=== PATIENT | male | born 1990 | race Caucasian/White ===

== ENCOUNTER 2020-11-04 11:25 | Emergency (ER) | payer OTHER ==
[~2020-11-04] VITALS: Ht 180.3 cm; Wt 127.0 kg
--- NOTE | 2020-11-04 12:02 | ED General ---
General Chief Complaint: Respiratory Problems Stated Complaint: WEAK/SOA/COUGH Nursing Triage Note: Patient reports he began having symptoms of lack of energy, shortness of breath, cough, and loss of taste and smell on 10/26/20. Source of Information: Patient History of Present Illness Date Seen by Provider: Nov 04, 2020 Time Seen by Provider: 12:02 Initial Comments 29-year-old male presenting with complaints of decreased energy, shortness of breath, cough and low-grade fever with chills since Oct 26. He had a tooth pulled on October 27 and was told that he would likely have a sinus infection so he was placed on Augmentin. He has continued to feel bad ever since. This morning he had nausea and vomiting after trying to take Seroquel for his symptoms. He finally decided to come be seen because of feeling bad and having no energy. He did take Tylenol around 930 for his dental pain from having the tooth pulled. He had decreased taste and smell. Anytime he tries to take a deep breath he starts coughing. He states he is not really bringing anything up when he coughs. Associated Systoms: Chest Pain (from coughing), Cough, Fever/Chills (low grade) Allergies and Home Medications Allergies Coded Allergies: No Known Drug Allergies (Unverified , 11/04/20) Patient Home Medication List Home Medication List Reviewed: Yes Ondansetron (Ondansetron Odt) 4 Mg Tab.rapdis, 4 MG PO Q6H PRN for NAUSEA/VOMITING Prescribed by: GERSON LOBATO on 11/04/20 1413 Prednisone (Prednisone) 20 Mg Tab, 40 MG PO DAILY Prescribed by: GERSON LOBATO on 11/04/20 1413 Review of Systems Review of Systems Constitutional: chills, dizziness, fever, malaise, weakness EENTM: hoarseness, nose congestion; No epistaxis Respiratory: cough Cardiovascular: No edema Gastrointestinal: see HPI, nausea, vomiting (today) Genitourinary: no symptoms reported Musculoskeletal: other (generalized body aches) Skin: no symptoms reported Psychiatric/Neurological: Headache Hematologic/Lymphatic: Denies Blood Clots, Denies Easy Bleeding, Denies Easy Bruising Past Kqmoxzc-Anzjzw-Cdswwt Hx Patient Social History Tobacco Use?: No Substance use?: No Alcohol Use?: Yes Alcohol Frequency: Once in a while Pt feels they are or have been: No Past Medical History Surgeries: No Respiratory: No Cardiac: No Neurological: No Genitourinary: No Gastrointestinal: No Musculoskeletal: No Endocrine: No HEENT: No Cancer: No Psychosocial: No Physical Exam Vital Signs Vital Signs - First Documented 11/04/20 11:40 Temp 37.9 Pulse 93 Resp 18 B/P (MAP) 148/84 (105) Pulse Ox 96 O2 Delivery Room Air Capillary Refill : Less Than 3 Seconds Height, Weight, BMI Height: '" Weight: lbs. oz. kg; 39.00 BMI Method: General Appearance: No Apparent Distress, Other (appears to not feel well) HEENT: PERRL/EOMI; No Moist Mucous Membranes (slightly dry mucous membranes) Neck: Full Range of Motion, Supple Respiratory: Chest Non Tender, No Accessory Muscle Use, No Respiratory Distress, Decreased Breath Sounds Cardiovascular: Normal Peripheral Pulses, Tachycardia Gastrointestinal: Normal Bowel Sounds, No Pulsatile Mass, Non Tender, Soft Rectal: Deferred Extremity: Normal Capillary Refill, Normal Inspection, No Pedal Edema Neurologic/Psychiatric: Alert, Oriented x3, No Motor/Sensory Deficits, Normal Mood/Affect, transfer professor II-XII Norm as Tested Skin: Normal Color, Warm/Dry Progress/Results/Core Measures Suspected Sepsis SIRS Temperature: Pulse: 93 Respiratory Rate: 18 Laboratory Tests 11/04/20 13:10: White Blood Count 3.6L Blood Pressure 148 /84 Mean: 105 Laboratory Tests 11/04/20 13:10: Creatinine 1.23, INR Comment 0.9, Platelet Count 160, Total Bilirubin 0.3 Results/Orders Lab Results Laboratory Tests Test 11/04/20 11:43 11/04/20 13:10 Range/Units White Blood Count 3.6 L 4.3-11.0 10^3/uL Red Blood Count 5.65 H 4.30-5.52 10^6/uL Hemoglobin 16.0 13.3-17.7 g/dL Hematocrit 48 40-54 % Mean Corpuscular Volume 84 80-99 fL Mean Corpuscular Hemoglobin 28 25-34 pg Mean Corpuscular Hemoglobin Concent 34 32-36 g/dL Red Cell Distribution Width 12.8 10.0-14.5 % Platelet Count 160 130-400 10^3/uL Mean Platelet Volume 9.7 9.0-12.2 fL Immature Granulocyte % (Auto) 0 % Neutrophils (%) (Auto) 71 42-75 % Lymphocytes (%) (Auto) 23 12-44 % Monocytes (%) (Auto) 5 0-12 % Eosinophils (%) (Auto) 0 0-10 % Basophils (%) (Auto) 0 0-10 % Neutrophils # (Auto) 2.6 1.8-7.8 X 10^3 Lymphocytes # (Auto) 0.8 L 1.0-4.0 X 10^3 Monocytes # (Auto) 0.2 0.0-1.0 X 10^3 Eosinophils # (Auto) 0.0 0.0-0.3 10^3/uL Basophils # (Auto) 0.0 0.0-0.1 10^3/uL Immature Granulocyte # (Auto) 0.0 0.0-0.1 10^3/uL Prothrombin Time 12.8 12.2-14.7 SEC INR Comment 0.9 0.8-1.4 Activated Partial Thromboplast Time 35 24-35 SEC Sodium Level 135 135-145 MMOL/L Potassium Level 4.0 3.6-5.0 MMOL/L Chloride Level 99 98-107 MMOL/L Carbon Dioxide Level 24 21-32 MMOL/L Anion Gap 12 5-14 MMOL/L Blood Urea Nitrogen 12 7-18 MG/DL Creatinine 1.23 0.60-1.30 MG/DL Estimat Glomerular Filtration Rate 71 BUN/Creatinine Ratio 10 Glucose Level 100 70-105 MG/DL Calcium Level 8.9 8.5-10.1 MG/DL Corrected Calcium 8.7 8.5-10.1 MG/DL Total Bilirubin 0.3 0.1-1.0 MG/DL Aspartate Amino Transf (AST/SGOT) 52 H 5-34 U/L Alanine Aminotransferase (ALT/SGPT) 46 0-55 U/L Alkaline Phosphatase 74 40-136 U/L Troponin I < 0.30 <0.30 NG/ML C-Reactive Protein 2.98 H <0.50 MG/DL Total Protein 8.0 6.4-8.2 GM/DL Albumin 4.3 3.2-4.5 GM/DL My Orders Orders - GERSON LOBATO MD Monitor-Rhythm Ecg Trace Only (11/04/20 12:34) Ed Iv/Invasive Line Start (11/04/20 12:34) Cbc With Automated Diff (11/04/20 12:34) Comprehensive Metabolic Panel (11/04/20 12:34) Crp Fs (11/04/20 12:34) Troponin I Fs (11/04/20 12:34) Protime With Inr (11/04/20 12:34) Partial Thromboplastin Time (11/04/20 12:34) Ekg Tracing (11/04/20 12:34) Ns Iv 1000 Ml (Sodium Chloride 0.9%) (11/04/20 12:45) Ondansetron Injection (Zofran Injectio (11/04/20 12:45) Albuterol Inhaler (Albuterol) (11/04/20 12:45) Chest 1 View Ap/Pa Only (11/04/20 12:34) Dexamethasone Injection (Decadron Inje (11/04/20 12:34) Nursing Communication (Order) (11/04/20 12:34) Coronavirus Sars-Cov-2 So 2018 (11/04/20 12:38) Influenza A & B Antigens (11/04/20 12:38) Medications Given in ED Current Medications Medications Dose Ordered Sig/Susana Route Start Time Stop Time Status Last Admin Dose Admin Albuterol Sulfate 2 PUFFS ONCE PRN IH 11/04/20 12:45 11/04/20 14:36 DC 11/04/20 13:12 8.5 GM Ondansetron HCl 4 mg ONCE ONCE IV 11/04/20 12:45 11/04/20 12:46 DC 11/04/20 13:12 4 MG Vital Signs/I&O 11/04/20 11/04/20 11/04/20 11:40 11:56 14:33 Temp 37.9 Pulse 93 87 Resp 18 23 B/P (MAP) 148/84 (105) 151/91 Pulse Ox 96 97 O2 Delivery Room Air Room Air Room Air Capillary Refill : Less Than 3 Seconds Blood Pressure Mean: 105 Progress Note #1: Progress Note Obtain basic labs as well as cultures and lactic acid with chest x-ray and electrocardiogram. Since he is slightly tachycardic he did have nausea and vomiting and complains of being dizzy we will give a liter of normal saline for hydration. Try a dose of Decadron to help with his breathing, Zofran for nausea, albuterol inhaler with spacer to help with his cough and breathing. Progress Note #2: Progress Note Labs show WBC slightly low at 3.6 and CRP was elevated to 1.23. He had negative cardiac enzymes and no acute abnormality on ECG. Chest x-ray was showing patchy opacities consistent with Covid pneumonia. Counseled patient that with use antibiotic, steroid, albuterol inhaler with spacer to help with his treatment and symptoms. The Covid swab will be back in 24 to 48 hours. However at this time presumably has Covid and continue with quarantine until symptoms are better. Establish care with a local provider for follow-up. Return if any worsening symptoms or not improving ECG Initial ECG Impression Date: Nov 04, 2020 Initial ECG Impression Time: 13:16 Initial ECG Rate: 99 Initial ECG Rhythm: Normal Sinus Initial ECG Comparisson: No Previous ECG Available Comment Normal sinus rhythm with heart rate of 99 bpm. MO interval 155 ms. QT interval 343 ms with a QTc interval 441 ms. There is no acute ST elevation. There is no prior tracing available for comparison. Diagnostic Imaging Diagonstic Imaging: Xray Plain Films/CT/US/NM/MRI: chest Comments [facility]. [place], [place] NAME: CAREY TADEO [facility] REC#: [id number] PT STATUS: REG ER : 1990 PHYSICIAN: GERSON LOBATO MD ADMIT DATE: 11/04/20/ER FS Signed Date of Exam:11/04/20 CHEST 1 VIEW AP/PA ONLY EXAMINATION: Chest radiograph, portable AP view. DATE: 11/04/2020 12:57 PM INDICATION: 29-year-old male, cough, fever, shortness of breath. COMPARISON: None. FINDINGS: There is multifocal patchy bilateral lung consolidation. Lung volumes are somewhat low. Heart size and mediastinal contours are unremarkable. There is no identified pneumothorax. There is no large pleural effusion. IMPRESSION: 1. Multifocal bilateral lung consolidation most likely reflecting multifocal pneumonia/pneumonitis and can be seen with Covid 19 infection. Other infectious etiologies and alveolar consolidative processes are also considered. Dictated by: Dictated on workstation # [id number] Dict: 11/04/20 1304 Trans: 11/04/20 1335 [facility] [id number] Interpreted by: RONEY HCE MD Electronically signed by: RONEY CHE MD 11/04/20 9747 Reviewed: Reviewed by Me Departure Impression Primary Impression: Upper respiratory infection with cough and congestion Additional Impressions: Person under investigation for COVID-19 Dehydration Disposition: 01 HOME, SELF-CARE Condition: Stable Departure-Patient Inst. Decision time for Depature: 14:09 Referrals: [facility] Patient Instructions: COVID-19 ED, COVID-19 Tests, Dehydration, Adult ED, How to Use a Metered Dose Inhaler ED, How to Use a Spacer, Upper Respiratory Infection ED Add. Discharge Instructions: Take steroid to help with cough, body aches and congestion. Use inhaler with spacer to help with cough and shortness of breath. The results of your Covid swab will be done in 24-48 hours and you will get a call if it is positive. Until then presume that you have it and continue to quarantine until you are over your symptoms. You could call [phone] to get established with [facility] for a primary provider for follow up All discharge instructions reviewed with patient and/or family. Voiced understanding. Scripts Ondansetron (Ondansetron Odt) 4 Mg Tab.rapdis 4 MG PO Q6H PRN for NAUSEA/VOMITING for 4 Days, #16 TAB 0 Refills Prov: GERSON LOBATO MD 11/04/20 Prednisone (Prednisone) 20 Mg Tab 40 MG PO DAILY for 5 Days, #10 TAB 0 Refills Prov: GERSON LOBATO MD 11/04/20 GERSON LOBATO MD Nov 04, 2020 12:02
[2020-11-04] MEDS ORDERED: ONDANSETRON 4 MG/2 ML (SDV) Z0FRAN IV ONE (12:45)
[2020-11-04] MEDS ORDERED: NS IV 1000 ML 1,000 ML IV SCH (12:45)
[2020-11-04] MEDS ORDERED: RT-ALBUTEROL HFA 8.5 GM INHALER IH PRN (12:45)
--- NOTE | 2020-11-04 13:15 | Diagnostic Imaging Report ---
EXAMINATION: Chest radiograph, portable AP view. DATE: 11/04/2020 12:57 PM INDICATION: 29-year-old male, cough, fever, shortness of breath. COMPARISON: None. FINDINGS: There is multifocal patchy bilateral lung consolidation. Lung volumes are somewhat low. Heart size and mediastinal contours are unremarkable. There is no identified pneumothorax. There is no large pleural effusion. IMPRESSION: 1. Multifocal bilateral lung consolidation most likely reflecting multifocal pneumonia/pneumonitis and can be seen with Covid 19 infection. Other infectious etiologies and alveolar consolidative processes are also considered. Dictated by: Dictated on workstation # [id number]
[2020-11-04 13:18] LABS: HEMATOCRIT 48 % (40-54); MEAN CORPUSCULAR HEMOGLOBIN 28 pg (25-34); MEAN CORPUSCULAR HGB CONC 34 g/dL (32-36); MEAN CORPUSCULAR VOLUME 84 fL (80-99); WHITE BLOOD COUNT 3.6 10^3/uL (4.3-11.0)
[2020-11-04 13:19] LABS: BASOPHILS % (AUTO) 0 % (0-10); EOSINOPHILS % (AUTO) 0 % (0-10); LYMPHOCYTES # (AUTO) 0.8 X 10^3 (1.0-4.0); LYMPHOCYTES % (AUTO) 23 % (12-44); MEAN PLATELET VOLUME 9.7 fL (9.0-12.2); MONOCYTES # (AUTO) 0.2 X 10^3 (0.0-1.0); MONOCYTES % (AUTO) 5 % (0-12); NEUTROPHILS # (AUTO) 2.6 X 10^3 (1.8-7.8); NEUTROPHILS % (AUTO) 71 % (42-75); PLATELET COUNT 160 10^3/uL (130-400)
[2020-11-04 13:29] LABS: INR 0.9 (0.8-1.4); PROTHROMBIN TIME PATIENT 12.8 SEC (12.2-14.7)
[2020-11-04 13:36] LABS: CHLORIDE 99 MMOL/L (98-107); SODIUM 135 MMOL/L (135-145)
[2020-11-04 13:37] LABS: ALANINE AMINOTRANSFERASE 46 U/L (0-55); ALBUMIN 4.3 GM/DL (3.2-4.5); ALKALINE PHOSPHATASE 74 U/L (40-136); BILIRUBIN,TOTAL 0.3 MG/DL (0.1-1.0); BUN/CREATININE RATIO 10; CALCIUM 8.9 MG/DL (8.5-10.1); CARBON DIOXIDE 24 MMOL/L (21-32); CREATININE SERUM 1.23 MG/DL (0.60-1.30); GFR ESTIMATED 71; GLUCOSE 100 MG/DL (70-105)
[2020-11-04] MEDS ORDERED: PRD20T PO (14:13)
[2020-11-04] MEDS ORDERED: ONDA4TAB11 PO (14:13)
[2020-11-04 14:33] VITALS: BP 151/91
== END 2020-11-04 14:36 | disposition home or self-care (01) ==
LOC: ER FS 11:29
DX: U07.1 COVID-19 (principal); E86.0 Dehydration; R00.0 Tachycardia, unspecified
CPT/HCPCS: 36415; 71045; 80053; 84484; 85025; 85610; 85730; 86141; 87635; 93005; 93041

== ENCOUNTER 2020-11-07 12:11 | Inpatient (IN) | payer OTHER ==
[~2020-11-07] VITALS: Ht 180.3 cm; Wt 125.0 kg
[~2020-11-07 12:11] MED LIST: ONDA4TAB11 PO; PRD20T PO
[2020-11-07 17:12] VITALS: BP 166/88
--- NOTE | 2020-11-07 17:39 | Diagnostic Imaging Report ---
INDICATION: COVID positive, shortness of breath. TECHNIQUE: Frontal chest obtained at 05:24 p.m. and compared with 11/04/2020. FINDINGS: Heart is borderline in size. The mediastinal silhouette is unremarkable. There are patchy infiltrates throughout both lungs which have shown some worsening compared to the previous study. There is no pneumothorax or pleural fluid. IMPRESSION: Worsening bilateral infiltrates, compatible with pneumonia. No pneumothorax or pleural fluid. Dictated by: Dictated on workstation # [id number]
[2020-11-07] MEDS ORDERED: IPRA3AMP31 IH (17:41)
[2020-11-07] MEDS ORDERED: IVER3TAB2 PO (17:41)
[2020-11-07] MEDS ORDERED: LORA10TA76 PO (17:41)
[2020-11-07] MEDS ORDERED: FENO145T26 PO (17:41)
[2020-11-07] MEDS ORDERED: DEXA4TAB PO (17:41)
[2020-11-07] MEDS ORDERED: AZIT250T12 PO (17:41)
[2020-11-07] MEDS ORDERED: BUDE0.5A IH (17:41)
[2020-11-07] MEDS: inSUlin ASPART (NovoLOG) 1 UNIT/0.01 ML (CHARGE PER UNIT) SC SCH ×2 (18:14→22:21)
[2020-11-07] MEDS: ENOXAPARIN 40 MG/0.4 ML (LOVENOX) SYR SC SCH (18:15)
[2020-11-07 18:56] VITALS: BP 148/84
[2020-11-07] MEDS ORDERED: RT-ALBUTEROL HFA 8.5 GM INHALER IH PRN (19:15)
[2020-11-07 19:36] VITALS: BP 148/90
[2020-11-07] MEDS: RT--FLUTICASONE/SALMETEROL 113-14 (AIRDUO RespiCLICK) IH SCH (19:40)
[2020-11-07] MEDS: RT-ALBUTEROL HFA 8.5 GM INHALER IH SCH (19:40)
[2020-11-07 19:41] LABS: ABG BASE EXCESS 0.9 MMOL/L (-2.5-2.5); ABG OXYGEN SATURATION 93 % (94-100); ABG PCO2 40 MMHG (35-45); ABG PH 7.41 (7.37-7.43); ABG PO2 62 MMHG (79-93); ABG TCO2 26.4 MMOL/L (21.0-31.0)
[2020-11-07 19:51] LABS: ALLENS TEST YES-POS; INSPIRED O2 5; PATIENT TEMP 36.4; VENTILATOR NO
[2020-11-07] MEDS: guaiFENesin (MUCINEX) 600 MG TAB PO SCH (19:55)
[2020-11-07] MEDS: FAMOTIDINE 20 MG (PEPCID) TABLET PO SCH (19:55)
[2020-11-07 19:56] LABS: BASOPHILS % (AUTO) 0 % (0-10); EOSINOPHILS % (AUTO) 0 % (0-10); HEMATOCRIT 43 % (40-54); HEMOGLOBIN 14.5 g/dL (13.3-17.7); LYMPHOCYTES # (AUTO) 0.7 10^3/uL (1.0-4.0); LYMPHOCYTES % (AUTO) 11 % (12-44); MEAN CORPUSCULAR HEMOGLOBIN 28 pg (25-34); MEAN CORPUSCULAR HGB CONC 34 g/dL (32-36); MEAN CORPUSCULAR VOLUME 84 fL (80-99); MEAN PLATELET VOLUME 9.8 fL (9.0-12.2); MONOCYTES # (AUTO) 0.2 10^3/uL (0.0-1.0); MONOCYTES % (AUTO) 4 % (0-12); NEUTROPHILS % (AUTO) 85 % (42-75); PLATELET COUNT 210 10^3/uL (130-400); WHITE BLOOD COUNT 5.9 10^3/uL (4.3-11.0)
[2020-11-07] MEDS ORDERED: LOPERAMIDE 2 MG (IMODIUM) TABLET PO PRN (20:00)
[2020-11-07] MEDS ORDERED: ONDANSETRON 4 MG/2 ML (SDV) Z0FRAN IVP PRN (20:00)
[2020-11-07] MEDS ORDERED: MELATONIN 3 MG TABLET PO PRN (20:00)
[2020-11-07] MEDS ORDERED: ACETAMINOPHEN 500 MG TAB (TYLENOL) PO PRN (20:00)
[2020-11-07] MEDS ORDERED: CALCIUM CARBONATE 500 MG (TUMS) TAB.CHEW PO PRN (20:00)
[2020-11-07] MEDS ORDERED: DOCUSATE SODIUM 100 MG (COLACE) CAP PO PRN (20:00)
[2020-11-07] MEDS ORDERED: ALPRAZolam 0.25 MG (XANAX) TAB PO PRN (20:00)
[2020-11-07] MEDS ORDERED: HYDROcodone/APAP 5 MG/325 MG (LORTAB) TAB PO PRN (20:00)
[2020-11-07 20:07] LABS: ALBUMIN 3.7 GM/DL (3.2-4.5); POTASSIUM 4.3 MMOL/L (3.6-5.0)
[2020-11-07 20:08] LABS: CALCIUM 8.7 MG/DL (8.5-10.1)
[2020-11-07 20:09] LABS: TOTAL PROTEIN 7.1 GM/DL (6.4-8.2)
[2020-11-07 20:11] LABS: BILIRUBIN,TOTAL 0.6 MG/DL (0.1-1.0)
[2020-11-07 20:13] LABS: CREATININE SERUM 0.84 MG/DL (0.60-1.30)
--- NOTE | 2020-11-07 20:43 | History & Physical-Hospitalist ---
History of Present Illness HPI/Chief Complaint CC: SOB from Covid-19 pneumonia HPI: This is a 29yoWM who is presenting for the Regeneron infusion at [facility] found to be hypoxic and SOB, Pt was assessed in the ER found to have hypoxia and ABG/PO2 of 50. He required 7 liters of oxygen, his BMI is 40 and since he is at high risk for intubation he will be moved to cardiac step-down to be closer to pulmonary critical care. To note he reports he is not diabetic but he is having hyperglycemia with the steroid administration in addition he appears to have sleep apnea undiagnosed but he is a lifetime non-smoker. Source: patient Exam Limitations: no limitations Date Seen 11/07/20 Time Seen by a Provider: 18:00 Attending Physician Marissa Aleman DO PCP No,Local Physician Referring Physician Date of Admission Nov 07, 2020 at 16:21 Home Medications & Allergies Home Medications Reviewed patient Home Medication Reconciliation performed by pharmacy medication reconciliations media technician and/or nursing. Patients Allergies have been reviewed. Allergies Allergies Coded Allergies No Known Drug Allergies (Unverified11/04/20) Past Spghoyx-Hnxhck-Vsnxmy Hx Patient Social History Marrital Status: Employed/Student: employed ([employer] 12 years) Tobacco Use?: No Smoking Status: Never a Smoker Smokeless type used: Chew Smokeless Tobacco Frequency: Current Everyday User Use of E-Cig and/or Vaping dev: No Use of E-Cig and/or Vaping Gurmeet: Never a User Substance use?: No Alcohol Use?: Yes Alcohol type: Beer Alcohol Frequency: Once in a while Pt feels they are or have been: No Immunizations Up To Date Tetanus Booster (TDap): Unknown Hepatitis A: No Hepatitis B: No Current Status Advance Directives: No Communicates: Verbally Primary Language: Dominican Preferred Spoken Language: Dominican Is interpretation needed?: No Past Medical History High Cholesterol Review of Systems Constitutional: see HPI, fever, malaise, weakness EENTM: no symptoms reported Respiratory: dyspnea on exertion, short of breath Cardiovascular: no symptoms reported Gastrointestinal: no symptoms reported Genitourinary: no symptoms reported Musculoskeletal: no symptoms reported Skin: no symptoms reported Psychiatric/Neurological: No Symptoms Reported All Other Systems Reviewed Negative Unless Noted: Yes Physical Exam Physical Exam Vital Signs Vital Signs - First Documented 11/07/20 11/07/20 17:12 18:56 Temp 37.2 Pulse 75 Resp 20 B/P (MAP) 166/88 (114) Pulse Ox 93 O2 Delivery High Flow N/C O2 Flow Rate 7.00 FiO2 21 Capillary Refill : Height, Weight, BMI Height: '" Weight: lbs. oz. kg; 40.35 BMI Method: General Appearance: No Apparent Distress, WD/WN, Obese Eyes: Right Eye Normal Inspection, Right Eye PERRL HEENT: PERRL/EOMI, Normal ENT Inspection, Pharynx Normal, Moist Mucous Membranes Neck: Full Range of Motion, Normal Inspection, Non Tender Respiratory: Chest Non Tender, Normal Breath Sounds, No Accessory Muscle Use, No Respiratory Distress, Crackles Cardiovascular: Regular Rate, Rhythm, No Edema, No Gallop, No JVD, No Murmur, Normal Peripheral Pulses Gastrointestinal: Normal Bowel Sounds, No Organomegaly, No Pulsatile Mass, Non Tender, Soft Back: Normal Inspection, No CVA Tenderness, No Vertebral Tenderness Extremity: Normal Capillary Refill, Normal Inspection, Normal Range of Motion, Non Tender, No Calf Tenderness, No Pedal Edema Neurologic/Psychiatric: Alert, Oriented x3, No Motor/Sensory Deficits, Normal Mood/Affect Skin: Normal Color, Warm/Dry Lymphatic: No Adenopathy Results Results/Procedures Labs Laboratory Tests 11/07/20 19:45 Patient resulted labs reviewed. Assessment/Plan Admission Diagnosis Assessment: Acute hypoxic respiratory failure COVID-19 pneumonia Suspicion for obstructive sleep apnea Hyperglycemia rule out diabetes BMI 40 Plan: Decadron Vapotherm Pulmonology consult Admission Status: Inpatient Order (span 2 midnights) Reason for Inpatient Admission: COVID-19 pneumonia MARISSA ALEMAN DO Nov 07, 2020 20:43
[2020-11-07] MEDS: polyethylene glycoL POWDER 17 GM (MIRALAX) PACK PO SCH (20:47)
[2020-11-07] MEDS: SENNA W/DOCUSATE (SENOKOT S) TABLET PO SCH (20:47)
[2020-11-07] MEDS ORDERED: inSUlin ASPART (NovoLOG) 1 UNIT/0.01 ML (CHARGE PER UNIT) SC SCH (21:00)
[2020-11-07] MEDS ORDERED: RT-ALBUTEROL HFA 8.5 GM INHALER IH SCH (21:00)
[2020-11-08] VITALS (11 sets, daily range): BP systolic 121–145; BP diastolic 57–93
[2020-11-08] MEDS: RT-ALBUTEROL HFA 8.5 GM INHALER IH SCH ×6 (02:29→22:12)
[2020-11-08] MEDS: guaiFENesin/CODEINE (ROBITUSSIN AC) 10ML UDC PO PRN ×3 (02:52→15:50)
[2020-11-08] MEDS: inSUlin ASPART (NovoLOG) 1 UNIT/0.01 ML (CHARGE PER UNIT) SC SCH ×4 (05:45→20:53)
[2020-11-08] MEDS ORDERED: RT-ALBUTEROL HFA 8.5 GM INHALER IH SCH (06:00)
[2020-11-08] MEDS: RT--FLUTICASONE/SALMETEROL 113-14 (AIRDUO RespiCLICK) IH SCH ×2 (07:17→18:40)
[2020-11-08 07:28] LABS: ALBUMIN 3.3 GM/DL (3.2-4.5); BILIRUBIN,TOTAL 0.6 MG/DL (0.1-1.0); CALCIUM 8.3 MG/DL (8.5-10.1); CREATININE SERUM 0.79 MG/DL (0.60-1.30); TOTAL PROTEIN 6.8 GM/DL (6.4-8.2)
[2020-11-08 07:29] LABS: POTASSIUM 4.6 MMOL/L (3.6-5.0)
[2020-11-08 08:03] LABS: BASOPHILS % (AUTO) 0 % (0-10); EOSINOPHILS % (AUTO) 0 % (0-10); HEMATOCRIT 42 % (40-54); HEMOGLOBIN 14.1 g/dL (13.3-17.7); LYMPHOCYTES # (AUTO) 0.9 10^3/uL (1.0-4.0); LYMPHOCYTES % (AUTO) 10 % (12-44); MEAN CORPUSCULAR HEMOGLOBIN 28 pg (25-34); MEAN CORPUSCULAR HGB CONC 33 g/dL (32-36); MEAN CORPUSCULAR VOLUME 84 fL (80-99); MEAN PLATELET VOLUME 9.6 fL (9.0-12.2); MONOCYTES # (AUTO) 0.4 10^3/uL (0.0-1.0); MONOCYTES % (AUTO) 4 % (0-12); NEUTROPHILS # (AUTO) 7.7 10^3/uL (1.8-7.8); NEUTROPHILS % (AUTO) 85 % (42-75); PLATELET COUNT 207 10^3/uL (130-400)
[2020-11-08] MEDS: guaiFENesin (MUCINEX) 600 MG TAB PO SCH ×2 (08:09→20:53)
[2020-11-08] MEDS: polyethylene glycoL POWDER 17 GM (MIRALAX) PACK PO SCH ×2 (08:09→20:53)
[2020-11-08] MEDS: FAMOTIDINE 20 MG (PEPCID) TABLET PO SCH ×2 (08:09→20:53)
[2020-11-08] MEDS: SENNA W/DOCUSATE (SENOKOT S) TABLET PO SCH ×2 (08:09→20:53)
[2020-11-08] MEDS ORDERED: LORA10TA7 PO (10:07)
[2020-11-08] MEDS ORDERED: AMOX1TAB12 PO (10:07)
[2020-11-08] MEDS ORDERED: BUDE0.5A NEB (10:07)
[2020-11-08] MEDS ORDERED: FLUT16SP22 NSEACH (10:07)
[2020-11-08] MEDS ORDERED: IPRA3AMP31 IH (10:07)
[2020-11-08] MEDS ORDERED: CHOL200059 PO (10:07)
[2020-11-08] MEDS ORDERED: ONDA4TAB11 PO (10:07)
[2020-11-08] MEDS ORDERED: ACET-2267 PO (10:07)
[2020-11-08] MEDS ORDERED: ACET1TAB43 PO (10:07)
[2020-11-08] MEDS ORDERED: DEXA4TAB PO (10:07)
[2020-11-08] MEDS ORDERED: IVER3TAB2 PO (10:07)
[2020-11-08] MEDS ORDERED: ZINC50TA58 PO (10:07)
[2020-11-08] MEDS ORDERED: FENO145T26 PO (10:07)
[2020-11-08] MEDS ORDERED: AZIT250T12 PO (10:07)
[2020-11-08] MEDS ORDERED: ASCO500T17 PO (10:07)
[2020-11-08] MEDS ORDERED: TOCILIZUMAB INJECTION (NON-FOR 800 MG in NS (IVPB) 60 ML IV ONE (10:30)
--- NOTE | 2020-11-08 11:14 | Pulmonary Consultation ---
History of Present Illness History of Present Illness Date Seen by Provider: Nov 08, 2020 Time Seen by Provider: 11:09 Reason for Visit: COVID PNA History of Present Illness Sx since 10/28, admitted yesterday On floor for COVID, on vapotherm 35 lpm FiO2 85%, was on 7 lpm yesterday was on 80%. Has dry cough, no hemotysis, mild chest pain, + body aches Did not get vaccinated. On Decadron, out of window for remdesivir or Regen-COV. 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 Allergies and Home Medications Allergies Coded Allergies: No Known Drug Allergies (Unverified , 11/04/20) Home Medications Acetaminophen 500 Mg Tablet, 1,000 MG PO Q8H PRN for PAIN-MILD (1-4), (Reported) Acetaminophen with Codeine 1 Each Tablet, 1 EA PO Q8H PRN for PAIN-MODERATE (5- 7), (Reported) Amoxicillin/Potassium Clav 1 Each Tablet, 1 EA PO BID, (Reported) FILLED 10-31-2020 #20/10 DAY SUPPLY Ascorbic Acid 500 Mg Tablet, 500 MG PO DAILY, (Reported) Azithromycin 250 Mg Tablet, 250 MG PO DAILY, (Reported) FILLED 11-05-2020 #6/5 DAY SUPPLY Budesonide 0.5 Mg/2 Ml Ampul.neb, 0.5 MG NEB BID PRN for WHEEZING, (Reported) USE AFTER ALBUTEROL TREATMENT Cholecalciferol (Vitamin D3) 50 Mcg Tablet, 50 MCG PO DAILY, (Reported) Dexamethasone 4 Mg Tablet, MG PO DAILY, (Reported) FILLED 11-05-2020 #8/10 DAY SUPPLY 1 TAB DAILY X 5 DAYS THEN TAB DAILY X 5 DAYS Fenofibrate Nanocrystallized 145 Mg Tablet, 145 MG PO DAILY, (Reported) FILLED 11-05-2020 #10/10 DAY SUPPLY Fluticasone Propionate 16 Gm [place].susp, 2 SPRAYS NSEACH DAILY, (Reported) Ipratropium/Albuterol Sulfate 3 Ml Ampul.neb, 3 ML IH TID PRN for SHORTNESS OF BREATH, (Reported) Ivermectin 3 Mg Tablet, 6 MG PO BID, (Reported) TAKES 2 (3MG) TABS FILLED 11-05-2020 #20/5 DAY SUPPLY Loratadine 10 Mg Tablet, 10 MG PO DAILY, (Reported) Ondansetron 4 Mg Tab.rapdis, 4 MG PO Q6H PRN for NAUSEA/VOMITING-1ST LINE, (Reported) Zinc 50 Mg Tablet, 50 MG PO DAILY, (Reported) Past Medical/Social/Family Hx Patient Social History Marrital Status: Employed/Student: employed ([employer] 12 years) Tobacco Use?: No Smoking Status: Never a Smoker Smokeless type used: Chew Smokeless Tobacco Frequency: Current Everyday User Use of E-Cig and/or Vaping dev: No E-Cig and/or Vaping Freq: Never a User Substance use?: No Alcohol Use?: Yes Alcohol type: Beer Alcohol Frequency: Once in a while Pt stated abuse/neglect: No Immunizations Up To Date Influenza Vaccine Up-to-Date: No; Not Current Tetanus Booster (TDap): Unknown Hepatitis A: No Hepatitis B: No TB Skin Test: None Current Status Advance Directives: No Communicates: Verbally Primary Language: German Preferred Spoken Language: German Is interpretation needed?: No Review of Systems Constitutional: see HPI EENTM: see HPI Respiratory: see HPI Cardiovascular: see HPI Gastrointestinal: see HPI Genitourinary: see HPI Musculoskeletal: see HPI Skin: see HPI Psychiatric/Neurological: See HPI Sepsis Event Evaluation Height, Weight, BMI Height: '" Weight: lbs. oz. kg; 40.35 BMI Method: Exam Exam Patient acknowledged, consented, and participated in this virtual visit which was conducted using real time audio/video Vital Signs Date Time Temp Pulse Resp B/P (MAP) Pulse Ox O2 Delivery O2 Flow Rate FiO2 11/08/20 10:56 35.00 85 11/08/20 10:54 91 Vapotherm 35.00 80 11/08/20 08:00 92 Vapotherm 35.00 80 11/08/20 07:22 92 Vapotherm 35.00 80 11/08/20 07:17 94 Vapotherm 35.00 80 11/08/20 06:42 75 11/08/20 04:16 92 80 11/08/20 03:07 37.2 85 22 140/81 (100) 93 Vapotherm 35.00 80.00 11/08/20 02:29 91 Vapotherm 35.00 55 11/08/20 00:56 86 11/08/20 00:05 94 Vapotherm 30.00 55 11/08/20 00:00 36.4 86 22 134/80 (98) 91 High Flow N/C 7.00 11/07/20 19:50 91 High Flow N/C 7.00 11/07/20 19:40 92 Nasal Cannula 5.00 11/07/20 19:36 36.4 82 20 148/90 (109) 92 High Flow N/C 7.00 11/07/20 18:56 37.9 93 96 21 11/07/20 18:47 93 High Flow N/C 7.00 11/07/20 17:12 37.2 75 20 166/88 (114) 93 High Flow N/C 7.00 I & O 11/08/20 06:59 Intake Total 1150 ml Output Total 800 ml Balance 350 ml Height & Weight Height: '" Weight: lbs. oz. kg; 40.35 BMI Method: General Appearance: No Apparent Distress, WD/WN, Mild Distress, Obese HEENT: PERRL/EOMI, Normal ENT Inspection, Pharynx Normal, Moist Mucous Membranes Neck: Full Range of Motion, Normal Inspection, Non Tender Respiratory: Chest Non Tender, Normal Breath Sounds, No Accessory Muscle Use, No Respiratory Distress, Crackles Cardiovascular: Regular Rate, Rhythm, No Edema, No Gallop, No JVD, No Murmur, Normal Peripheral Pulses Extremity: Normal Capillary Refill, Normal Inspection, Normal Range of Motion, Non Tender, No Calf Tenderness, No Pedal Edema Neurologic/Psychiatric: Alert, Oriented x3, No Motor/Sensory Deficits, Normal Mood/Affect Skin: Normal Color, Warm/Dry Lymphatic: No Adenopathy Results Lab Laboratory Tests 11/07/20 19:45 11/08/20 06:51 11/08/20 07:55 Assessment/Plan Assessment/Plan Fairly extensive opacities on CXR which is consistent with his need for high flow oxygen. Would continue Decadron, to get IV Actemra, Need to closely monitor oxygen needs. Would repeat CXR in am, Pt/ want Vitamins, I would give 2000U/d Vit D po Time spent with patient (mins): 30 HOA MERRILL MD Nov 08, 2020 11:14
--- NOTE | 2020-11-08 14:57 | Progress Note - Hospitalist ---
YOKASTA WILD 11/08/20 1457: Subjective HPI/CC On Admission Date Seen by Provider: Nov 08, 2020 Time Seen by Provider: 11:15 CC: SOB from Covid-19 pneumonia HPI: This is a 29yoWM who is presenting for the Regeneron infusion at [facility] found to be hypoxic and SOB, Pt was assessed in the ER found to have hypoxia and ABG/PO2 of 50. He required 7 liters of oxygen, his BMI is 40 and since he is at high risk for intubation he will be moved to cardiac step-down to be closer to pulmonary critical care. To note he reports he is not diabetic but he is having hyperglycemia with the steroid administration in addition he appears to have sleep apnea undiagnosed but he is a lifetime non-smoker. Subjective/Events-last exam Today Mr. Garcia reports that his dyspnea. During conversation patient had difficulty breathing between sentences and his face became flushed. Reports that he is feeling the same as yesterday overall. Endorses pleuritic chest pain, dyspnea, cough. Denies fevers, chills, nausea, vomiting, diarrhea, constipation. Objective Exam Vital Signs Vital Signs Date Time Temp Pulse Resp B/P (MAP) Pulse Ox O2 Delivery O2 Flow Rate FiO2 11/08/20 14:24 93 Vapotherm 30.00 90 11/08/20 12:24 88 11/08/20 12:15 27 11/08/20 08:00 37.2 145/88 (107) Capillary Refill : General Appearance: Anxious, Mild Distress Respiratory: No Accessory Muscle Use, No Respiratory Distress, Decreased Breath Sounds Cardiovascular: Regular Rate, Rhythm, No Edema, No Murmur, Normal Peripheral Pulses Gastrointestinal: Normal Bowel Sounds Extremity: Normal Capillary Refill, No Calf Tenderness, No Pedal Edema Neurologic/Psychiatric: Alert, Oriented x3 Skin: Erythema (Facial flushing) Results/Procedures Lab Laboratory Tests 11/07/20 19:45 11/08/20 06:51 11/08/20 07:55 Patient resulted labs reviewed. Assessment/Plan Assessment and Plan Assess & Plan/Chief Complaint Dwain Garcia is a 29yo male with past medical history of obesity and possible MARSHALL who was admitted 11/07 for management of COVID-19 pneumonia Current Problems are the following Acute hypoxic respiratory failure 2/2 COVID -11/02: Tested positive for COVID following exposure 10/26 -11/07: Admission for worsening dyspnea. Required 7L NC -11/08: Transitioned from NC to vapotherm -Current vapotherm settings: FIO2 80, O2 flow 35 Plan -Begin tocilizumab injections -Continue dexamethasone 6mg -Continue Lovenox 40mg -Continue oxygen supplementation. -Risk for intubation is high. MARISSA CARROLL DO 11/09/20 0551: Subjective Subjective/Events-last exam Patient appears to be fatiguing Transferring to the ICU Maxed on Vapotherm May need BiPAP Review of Systems General: Fatigue Pulmonary: Dyspnea Objective Exam General Appearance: WD/WN, Anxious, Chronically ill, Mild Distress, Obese Respiratory: Accessory Muscle Use, Decreased Breath Sounds Cardiovascular: Regular Rate, Rhythm Neurologic/Psychiatric: Alert, Oriented x3 Assessment/Plan Assessment and Plan Assess & Plan/Chief Complaint ICU transfer Maxed on Vapotherm May need BiPAP High risk for intubation High risk for within 2 weeks Supervisory-Addendum Brief Verification & Attestation Participated in pt care: history, MDM, physical Personally performed: exam, history, MDM, supervision of care Care discussed with: Medical Student Procedures: n/a Results interpretation: Verified all documentation Verification and Attestation of Medical Student E/M Service A medical student performed and documented this service in my presence. I reviewed and verified all information documented by the medical student and made modifications to such information, when appropriate. I personally performed the physical exam and medical decision making. Marissa Carroll, Nov 09, 2020,05:50 YOKASTA WILD Nov 08, 2020 14:57 MARISSA CARROLL DO Nov 09, 2020 05:51
[2020-11-08] MEDS ORDERED: LIDOCAINE UROJET 2% GEL 10 ML PKG ONE (17:56)
[2020-11-08] MEDS: ENOXAPARIN 40 MG/0.4 ML (LOVENOX) SYR SC SCH (17:59)
[2020-11-08] MEDS: MELATONIN 3 MG TABLET PO SCH (20:53)
[2020-11-09] VITALS (26 sets, daily range): BP systolic 101–151; BP diastolic 66–100
[2020-11-09] MEDS: guaiFENesin/CODEINE (ROBITUSSIN AC) 10ML UDC PO PRN ×3 (02:16→21:00)
[2020-11-09] MEDS: RT-ALBUTEROL HFA 8.5 GM INHALER IH SCH ×6 (02:28→22:20)
[2020-11-09] MEDS: inSUlin ASPART (NovoLOG) 1 UNIT/0.01 ML (CHARGE PER UNIT) SC SCH ×3 (07:06→21:51)
[2020-11-09 07:16] LABS: BASOPHILS % (AUTO) 0 % (0-10); MEAN CORPUSCULAR VOLUME 86 fL (80-99); MONOCYTES % (AUTO) 4 % (0-12)
[2020-11-09 07:18] LABS: EOSINOPHILS % (AUTO) 0 % (0-10); HEMATOCRIT 46 % (40-54); HEMOGLOBIN 14.8 g/dL (13.3-17.7); LYMPHOCYTES # (AUTO) 1.1 10^3/uL (1.0-4.0); LYMPHOCYTES % (AUTO) 15 % (12-44); MEAN CORPUSCULAR HEMOGLOBIN 28 pg (25-34); MEAN CORPUSCULAR HGB CONC 33 g/dL (32-36); MEAN PLATELET VOLUME 10.3 fL (9.0-12.2); MONOCYTES # (AUTO) 0.3 10^3/uL (0.0-1.0); NEUTROPHILS # (AUTO) 6.1 10^3/uL (1.8-7.8); NEUTROPHILS % (AUTO) 80 % (42-75); PLATELET COUNT 240 10^3/uL (130-400); WHITE BLOOD COUNT 7.6 10^3/uL (4.3-11.0)
[2020-11-09 07:36] LABS: POTASSIUM 4.5 MMOL/L (3.6-5.0)
[2020-11-09] MEDS: RT--FLUTICASONE/SALMETEROL 113-14 (AIRDUO RespiCLICK) IH SCH (07:36)
[2020-11-09 07:41] LABS: CREATININE SERUM 0.78 MG/DL (0.60-1.30); PHOSPHORUS 3.9 MG/DL (2.3-4.7)
[2020-11-09 07:44] LABS: MAGNESIUM 2.6 MG/DL (1.6-2.4)
[2020-11-09] MEDS: polyethylene glycoL POWDER 17 GM (MIRALAX) PACK PO SCH ×2 (08:59→21:51)
[2020-11-09] MEDS: FAMOTIDINE 20 MG (PEPCID) TABLET PO SCH ×2 (08:59→20:59)
[2020-11-09] MEDS: guaiFENesin (MUCINEX) 600 MG TAB PO SCH ×2 (08:59→20:59)
[2020-11-09] MEDS: SENNA W/DOCUSATE (SENOKOT S) TABLET PO SCH ×2 (08:59→21:51)
[2020-11-09] MEDS ORDERED: inSUlin ASPART (NovoLOG) 1 UNIT/0.01 ML (CHARGE PER UNIT) SC SCH (11:00)
--- NOTE | 2020-11-09 11:11 | Pulmonary Progress Note ---
LES LOWE MED STUDENT 11/09/20 1111: Subjective Date Seen by a Provider: Nov 09, 2020 Time Seen by a Provider: 07:35 Subjective/Events-last exam Dwain Garcia reported his symptoms began with right upper dental pain on 10/28. He had a tooth pulled 10/29 and the dentist gave him antibiotics due to suspected sinus infection. Dental pain resolved but congestion and URI symptoms persisted until he was notified of a prior covid exposure and tested positive 11/02. He states he has mild congestion but complains of worsening SOB. Currently on vapotherm 40L + 100% FiO2. Per night RN, he desaturates to low 80's with any movement or lying on his back. Dwain denied prior lung disease, states he rarely went to a doctor prior to this. He says his cough is nonproductive. No diarrhea, constipation, fever, chills, or leg pain. Sepsis Event Evaluation Height, Weight, BMI Height: '" Weight: lbs. oz. kg; 40.35 BMI Method: Exam Exam Patient acknowledged, consented, and participated in this virtual visit which was conducted using real time audio/video Vital Signs Date Time Temp Pulse Resp B/P (MAP) Pulse Ox O2 Delivery O2 Flow Rate FiO2 11/09/20 10:00 86 23 144/81 (102) 89 Vapotherm 40.00 100.00 11/09/20 09:56 92 Vapotherm 40.00 100 11/09/20 09:00 66 23 122/83 (96) 90 Vapotherm 40.00 100.00 11/09/20 08:00 69 19 103/89 (95) 88 Vapotherm 40.00 100.00 11/09/20 07:37 90 Vapotherm 40.00 100 11/09/20 07:36 94 Vapotherm 40.00 100 11/09/20 07:00 60 11/09/20 07:00 71 11 128/82 (100) 89 Vapotherm 40.00 100.00 11/09/20 06:00 58 20 140/93 (109) 93 Vapotherm 40.00 100.00 11/09/20 05:00 66 20 129/79 (96) 90 Vapotherm 40.00 100.00 11/09/20 04:00 62 21 125/66 (85) 92 Vapotherm 40.00 100.00 11/09/20 03:00 56 22 142/90 (107) 89 Vapotherm 40.00 100.00 11/09/20 02:28 94 Vapotherm 40.00 100 11/09/20 02:00 56 22 142/86 (104) 91 Vapotherm 40.00 100.00 11/09/20 01:00 56 11/09/20 01:00 56 22 141/89 (106) 93 Vapotherm 40.00 100.00 11/09/20 00:00 70 22 140/85 (103) 90 Vapotherm 40.00 100.00 11/08/20 23:00 62 16 139/65 (89) 92 Vapotherm 40.00 100.00 11/08/20 22:13 94 Vapotherm 30.00 100 11/08/20 22:00 59 20 121/72 (88) 94 Vapotherm 40.00 100.00 11/08/20 21:00 71 20 136/78 (97) 92 Vapotherm 40.00 100.00 11/08/20 20:00 90 Vapotherm 40.00 100 11/08/20 20:00 75 16 123/57 (79) 96 Vapotherm 40.00 100.00 11/08/20 19:37 36.0 11/08/20 19:00 70 17 131/78 (95) 95 Vapotherm 40.00 100.00 11/08/20 19:00 Vapotherm 40.00 100.00 11/08/20 19:00 70 11/08/20 18:44 96 Vapotherm 30.00 100 11/08/20 18:41 96 Vapotherm 30.00 100 11/08/20 18:00 140/79 (99) 97 Vapotherm 40.00 90.00 11/08/20 17:00 74 136/93 (107) 91 Vapotherm 40.00 90.00 11/08/20 16:00 139/86 (103) Vapotherm 40.00 90.00 11/08/20 14:24 93 Vapotherm 30.00 90 11/08/20 12:24 88 11/08/20 12:15 87 27 89 Vapotherm 30.00 90.00 11/08/20 12:07 94 30.00 90 11/08/20 12:00 90 24 87 Vapotherm 30.00 85.00 l I & O 11/09/20 07:00 Intake Total 850 ml Output Total 725 ml Balance 125 ml Height & Weight Height: '" Weight: lbs. oz. kg; 40.35 BMI Method: General Appearance: WD/WN, Mild Distress, Obese HEENT: PERRL/EOMI, Normal ENT Inspection, Pharynx Normal, Moist Mucous Membranes; No Pharyngeal Erythema; Other (no visible intraoral abscesses or drainage. ) Neck: Full Range of Motion, Normal Inspection, Non Tender Respiratory: Accessory Muscle Use, Decreased Breath Sounds Cardiovascular: Regular Rate, Rhythm, Normal Peripheral Pulses Extremity: Normal Capillary Refill, No Calf Tenderness, No Pedal Edema Neurologic/Psychiatric: Alert, Oriented x3 Skin: Normal Color, Warm/Dry Lymphatic: No Adenopathy Results Lab Laboratory Tests 11/07/20 19:45 11/08/20 06:51 11/08/20 07:55 11/09/20 07:06 Assessment/Plan Assessment/Plan Covid 19 acute hypoxic respiratory failure/ARDS -received tocalizumab -on Decadron -maxed out on vapotherm. Positional hypoxia with this. Will likely need bipap -continue breathing treatments -monitor for s/sx covid PNA. Currently Afebrile and normotensive without productive cough. sinus congestion -mucinex minimal transaminitis -repeat LFTs mild hypermagnesemia -continue to monitor obesity GI prophylaxis -pepcid DVT prophylaxis -lovenox 40 RONI GUADARRAMA MD 11/09/20 1538: Supervisory-Addendum Brief Verification & Attestation Participated in pt care: history, MDM, physical Personally performed: history, MDM, supervision of care Care discussed with: Medical Student Procedures: n/a PLAN as above A medical student performed and documented this service. I reviewed all information documented by the medical student and made modifications to such information, when appropriate. Medical student performed patients physical exam. Medical decision making was done during tele-rounds with this medical student and a bedside RN . Plans in collaboration with bedside consultants and IM MDs. Discussed with RN to reach out if any questions or concerns A total of 25 minutes of critical care time was devoted to this patient today, required to treat and/or prevent further deterioration of critical care condition ( as above) . LES LOWE MED STUDENT Nov 09, 2020 11:11 RONI GUADARRAMA MD Nov 09, 2020 15:38
--- NOTE | 2020-11-09 12:38 | Progress Note - Hospitalist ---
Subjective HPI/CC On Admission Date Seen by Provider: Nov 09, 2020 Time Seen by Provider: 11:00 CC: SOB from Covid-19 pneumonia HPI: This is a 29yoWM who is presenting for the Regeneron infusion at [facility] found to be hypoxic and SOB, Pt was assessed in the ER found to have hypoxia and ABG/PO2 of 50. He required 7 liters of oxygen, his BMI is 40 and since he is at high risk for intubation he will be moved to cardiac step-down to be closer to pulmonary critical care. To note he reports he is not diabetic but he is having hyperglycemia with the steroid administration in addition he appears to have sleep apnea undiagnosed but he is a lifetime non-smoker. Subjective/Events-last exam Patient maxed on Vapotherm BiPAP will be tried Reached out to [facility] and even though his BMI is 40 his age of 29 does meet criteria for ECMO but he must be intubated and fail proning in order to have that opportunity Spoke with eICU specialist and if he requires intubation we will update [facility] and possibly move towards that Updated as requested. Stated that he will have a challenge and possibly ICU stay for weeks. She then became very irate and asked for him to be transferred. I told her Covid treatments were managed on a standard of care and no other hospital would be doing anything differently. has called the nurse asking for ivermectin and multiple other supplements and non-FDA approved treatment after she is talked to some healthcare professionals outside of the hospital. Tried to reassure but seems to be unreasonable. Review of Systems Pulmonary: Dyspnea Objective Exam Vital Signs Vital Signs Date Time Temp Pulse Resp B/P (MAP) Pulse Ox O2 Delivery O2 Flow Rate FiO2 11/10/20 06:00 58 22 124/77 (93) 92 NIV Bilevel 85.00 11/10/20 00:00 36.0 11/09/20 20:00 100 Capillary Refill : General Appearance: Anxious, Chronically ill, Mild Distress, Other (Fatigued) Respiratory: Accessory Muscle Use, Decreased Breath Sounds Cardiovascular: Regular Rate, Rhythm Neurologic/Psychiatric: Alert, Oriented x3 Results/Procedures Lab Laboratory Tests 11/09/20 07:06 11/10/20 05:21 Patient resulted labs reviewed. Assessment/Plan Assessment and Plan Assess & Plan/Chief Complaint ICU status maintained Maxed on Vapotherm BiPAP initiated High risk for intubation High risk for within 2 weeks KIRTI CARROLL DO Nov 09, 2020 12:38
--- NOTE | 2020-11-09 14:41 | Progress Note - Hospitalist ---
YOKASTA WILD 11/09/20 1441: Subjective HPI/CC On Admission Date Seen by Provider: Nov 09, 2020 Time Seen by Provider: 11:00 CC: SOB from Covid-19 pneumonia HPI: This is a 29yoWM who is presenting for the Regeneron infusion at [facility] found to be hypoxic and SOB, Pt was assessed in the ER found to have hypoxia and ABG/PO2 of 50. He required 7 liters of oxygen, his BMI is 40 and since he is at high risk for intubation he will be moved to cardiac step-down to be closer to pulmonary critical care. To note he reports he is not diabetic but he is having hyperglycemia with the steroid administration in addition he appears to have sleep apnea undiagnosed but he is a lifetime non-smoker. Subjective/Events-last exam Today Mr. Garcia believes that he feels better. He has no questions nor concerns. He appears fatigued and in resp distress. Denies fevers, chills, nausea, vomiting, diarrhea, constipation. Unfortunately he was maxed on vapotherm (FIO2 100, O2 flow 40) and will likely transition to BIPAP Objective Exam Vital Signs Vital Signs Date Time Temp Pulse Resp B/P (MAP) Pulse Ox O2 Delivery O2 Flow Rate FiO2 11/09/20 13:00 68 25 141/97 (112) 94 Vapotherm 40.00 100.00 11/09/20 12:00 36.9 11/09/20 09:56 100 Capillary Refill : General Appearance: No Apparent Distress, WD/WN Respiratory: Chest Non Tender, Accessory Muscle Use, Decreased Breath Sounds, Respiratory Distress Cardiovascular: Regular Rate, Rhythm, No Edema, No Murmur, Normal Peripheral Pulses Gastrointestinal: Normal Bowel Sounds Extremity: Normal Capillary Refill, No Calf Tenderness Neurologic/Psychiatric: Alert, Oriented x3 Skin: Normal Color, Warm/Dry Results/Procedures Lab Laboratory Tests 11/09/20 07:06 Patient resulted labs reviewed. Assessment/Plan Assessment and Plan Assess & Plan/Chief Complaint Dwain Garcia is a 29yo male with past medical history of obesity and possible MARSHALL who was admitted 11/07 for management of COVID-19 pneumonia Current Problems are the following Acute hypoxic respiratory failure 2/2 COVID -11/02: Tested positive for COVID following exposure 10/26 -11/07: Admission for worsening dyspnea. Required 7L NC -11/09: Current vapotherm settings: FIO2 100, O2 flow 40 Plan -Begin tocilizumab injections -Continue dexamethasone 6mg -Continue Lovenox 40mg -Continue oxygen supplementation. -Risk for intubation is high. Critical Care: Critically Ill Patient MARISSA CARROLL DO 11/10/20 0643: Supervisory-Addendum Brief Verification & Attestation Participated in pt care: history, MDM, physical Personally performed: exam, history, MDM, supervision of care Care discussed with: Medical Student Procedures: n/a Results interpretation: Verified all documentation Verification and Attestation of Medical Student E/M Service A medical student performed and documented this service in my presence. I reviewed and verified all information documented by the medical student and made modifications to such information, when appropriate. I personally performed the physical exam and medical decision making. Marissa Carroll, Nov 10, 2020,06:43 YOKASTA WILD Nov 09, 2020 14:41 MARISSA CARROLL DO Nov 10, 2020 06:43
[2020-11-09] MEDS: ENOXAPARIN 40 MG/0.4 ML (LOVENOX) SYR SC SCH (17:20)
[2020-11-09] MEDS: MELATONIN 3 MG TABLET PO SCH (20:59)
[2020-11-09] MEDS: ACETAMINOPHEN 325 MG TABLET PO PRN (21:00)
[2020-11-10] VITALS (26 sets, daily range): BP systolic 115–141; BP diastolic 63–108
[2020-11-10] MEDS: RT-ALBUTEROL HFA 8.5 GM INHALER IH SCH ×6 (02:58→22:14)
[2020-11-10] MEDS: POTASSIUM CL 10MEQ/50ML IVPB 50 ML IV SCH (05:01)
[2020-11-10] MEDS: MAGNESIUM 1 GM/100 ML IVPB 100 ML IV SCH (05:01)
[2020-11-10] MEDS: KCL 20 MEQ TAB (K-DUR) PO SCH (05:01)
[2020-11-10 05:49] LABS: BASOPHILS % (AUTO) 0 % (0-10); EOSINOPHILS # (AUTO) 0.1 10^3/uL (0.0-0.3); EOSINOPHILS % (AUTO) 1 % (0-10); HEMATOCRIT 46 % (40-54); HEMOGLOBIN 15.3 g/dL (13.3-17.7); LYMPHOCYTES # (AUTO) 1.4 10^3/uL (1.0-4.0); LYMPHOCYTES % (AUTO) 21 % (12-44); MEAN CORPUSCULAR HEMOGLOBIN 28 pg (25-34); MEAN CORPUSCULAR HGB CONC 33 g/dL (32-36); MEAN CORPUSCULAR VOLUME 85 fL (80-99); MEAN PLATELET VOLUME 9.8 fL (9.0-12.2); MONOCYTES # (AUTO) 0.3 10^3/uL (0.0-1.0); MONOCYTES % (AUTO) 4 % (0-12); NEUTROPHILS # (AUTO) 4.8 10^3/uL (1.8-7.8); NEUTROPHILS % (AUTO) 73 % (42-75); PLATELET COUNT 291 10^3/uL (130-400); WHITE BLOOD COUNT 6.6 10^3/uL (4.3-11.0)
[2020-11-10 05:59] LABS: POTASSIUM 4.1 MMOL/L (3.6-5.0)
[2020-11-10 06:05] LABS: CREATININE SERUM 0.83 MG/DL (0.60-1.30); PHOSPHORUS 4.4 MG/DL (2.3-4.7)
[2020-11-10 06:08] LABS: MAGNESIUM 2.4 MG/DL (1.6-2.4)
[2020-11-10] MEDS: inSUlin ASPART (NovoLOG) 1 UNIT/0.01 ML (CHARGE PER UNIT) SC SCH ×4 (06:28→20:38)
--- NOTE | 2020-11-10 07:51 | Progress Note - Hospitalist ---
Subjective HPI/CC On Admission Date Seen by Provider: Nov 10, 2020 Time Seen by Provider: 11:30 CC: SOB from Covid-19 pneumonia HPI: This is a 29yoWM who is presenting for the Regeneron infusion at [facility] found to be hypoxic and SOB, Pt was assessed in the ER found to have hypoxia and ABG/PO2 of 50. He required 7 liters of oxygen, his BMI is 40 and since he is at high risk for intubation he will be moved to cardiac step-down to be closer to pulmonary critical care. To note he reports he is not diabetic but he is having hyperglycemia with the steroid administration in addition he appears to have sleep apnea undiagnosed but he is a lifetime non-smoker. Subjective/Events-last exam Patient about the same No need for intubation currently BiPAP at 80% Lying on his right side Tachypnea at times but not in distress Not eating well Review of Systems Pulmonary: Dyspnea, Cough Objective Exam Vital Signs Vital Signs Date Time Temp Pulse Resp B/P (MAP) Pulse Ox O2 Delivery O2 Flow Rate FiO2 11/10/20 15:35 95 Vapotherm 40.00 100 11/10/20 15:00 68 16 121/63 (82) 11/10/20 11:28 36.6 Capillary Refill : General Appearance: No Apparent Distress, Anxious, Chronically ill Respiratory: No Accessory Muscle Use, No Respiratory Distress, Decreased Breath Sounds Cardiovascular: Regular Rate, Rhythm Neurologic/Psychiatric: Alert, Oriented x3, No Motor/Sensory Deficits, Normal Mood/Affect Results/Procedures Lab Laboratory Tests 11/10/20 05:21 Patient resulted labs reviewed. Assessment/Plan Assessment and Plan Assess & Plan/Chief Complaint Assessment: COVID-19 pneumonia severe BMI 40 Plan: ICU status maintained Maxed on Vapotherm BiPAP initiated High risk for intubation High risk for within 2 weeks Lovenox Steroids Critical Care Critically Ill Patient CARROLLBRENDA SALINASBreanna TUBBS Nov 10, 2020 07:51
[2020-11-10] MEDS: polyethylene glycoL POWDER 17 GM (MIRALAX) PACK PO SCH ×2 (08:13→20:37)
[2020-11-10] MEDS: guaiFENesin (MUCINEX) 600 MG TAB PO SCH ×2 (08:13→20:37)
[2020-11-10] MEDS: SENNA W/DOCUSATE (SENOKOT S) TABLET PO SCH ×2 (08:13→20:37)
[2020-11-10] MEDS: FAMOTIDINE 20 MG (PEPCID) TABLET PO SCH ×2 (08:13→20:37)
--- NOTE | 2020-11-10 09:45 | Tele-ICU Progress Note ---
Subjective Date Seen by a Provider: Nov 10, 2020 Time Seen by a Provider: 08:22 Subjective/Events-last exam This virtual visit was conducted using real time audio/video. Thank you for asking us to see this patient for respiratory insufficiency and distress due to Covid pna, possible undiagnosed MARSHALL. [facility]: Recent events: Not accepted at [facility] as not on vent. PE: Obese, comfortable on Bi PAP. VSS. O2 sat 95% on BiPAP 80% 01/12. HEENT: No obvious masses, adenopathy or JVD. Chest: clear to auscultation. CV: RRR S1 S2 No murmur or added sounds. Abd: Non-tender. Bowel sounds Y. : Unremarkable. Barker N. PCB DESIGN ENGINEER/psychiatric: Alert and oriented, grossly intact. No obvious focal findings. Extremities: No edema. Capillary refill < 3 seconds. Skin: unremarkable. Results: CXR 11/07 w B infilts. A/P: Respiratory insufficiency/distress: Cont alb., Airduo Available chart/ vitals / labs /images reviewed. Video assessment done using teleICU camera, rest of exam as per RN. Respiratory: Wean BiPAP as freda. Monitor for increasing oxygenation needs and/or need for intubation. Critical Care: critically ill patient. Cont Pepcid, Dex., Anu., insulin. Discussed with VLADISLAV Girard. Asked RN to reach out to eICU if any questions or concerns later. Time spent with patient/coordination of care with other health professionals (mins): 25 Sepsis Event Evaluation Height, Weight, BMI Height: '" Weight: lbs. oz. kg; 40.35 BMI Method: Exam Exam Patient acknowledged, consented, and participated in this virtual visit which was conducted using real time audio/video Vital Signs Date Time Temp Pulse Resp B/P (MAP) Pulse Ox O2 Delivery O2 Flow Rate FiO2 11/10/20 09:00 55 23 115/80 (92) 95 NIV Bilevel 85.00 11/10/20 08:02 36.0 11/10/20 08:00 53 13 125/78 (94) 91 NIV Bilevel 85.00 11/10/20 07:12 51 31 92 80.00 11/10/20 07:00 55 30 128/75 (92) 95 NIV Bilevel 85.00 11/10/20 07:00 70 9/25/21 06:00 58 22 124/77 (93) 92 NIV Bilevel 85.00 11/10/20 05:00 49 22 127/81 (96) 92 NIV Bilevel 85.00 11/10/20 04:00 58 17 137/82 (100) 92 NIV Bilevel 75.00 11/10/20 03:00 59 22 122/74 (90) 92 NIV Bilevel 75.00 11/10/20 02:58 57 27 93 70.00 11/10/20 02:00 52 22 126/87 (100) 95 NIV Bilevel 75.00 11/10/20 01:00 54 11/10/20 01:00 54 22 124/77 (93) 95 NIV Bilevel 75.00 11/10/20 00:00 59 26 121/68 (85) 93 NIV Bilevel 75.00 11/10/20 00:00 36.0 11/09/20 23:00 64 29 136/81 (99) 94 NIV Bilevel 75.00 11/09/20 22:20 63 31 95 70.00 11/09/20 22:00 61 26 120/69 (86) 96 NIV Bilevel 75.00 11/09/20 21:30 NIV Bilevel 75.00 11/09/20 21:00 72 26 151/88 (109) 88 Vapotherm 40.00 100.00 11/09/20 20:05 36.8 11/09/20 20:00 70 20 133/75 (94) 85 Vapotherm 40.00 100.00 11/09/20 20:00 89 Vapotherm 40.00 100 11/09/20 19:44 36.6 75 24 101/91 (94) 89 Vapotherm 40.00 100.00 11/09/20 19:00 81 11/09/20 19:00 81 20 101/91 (94) 88 Vapotherm 40.00 100.00 11/09/20 18:44 91 Vapotherm 40.00 100 11/09/20 18:00 73 25 137/85 (102) 89 Vapotherm 40.00 100.00 11/09/20 17:00 86 16 95 Vapotherm 40.00 100.00 11/09/20 16:00 65 15 141/86 (104) 93 Vapotherm 40.00 100.00 9/24/21 16:00 36.0 11/09/20 15:35 54 28 96 90.00 11/09/20 15:00 62 28 139/90 (106) 95 Vapotherm 40.00 100.00 11/09/20 14:00 59 31 138/91 (107) 90 Vapotherm 40.00 100.00 11/09/20 13:00 68 25 141/97 (112) 94 Vapotherm 40.00 100.00 11/09/20 12:49 62 11/09/20 12:00 74 17 138/100 (113) 90 Vapotherm 40.00 100.00 11/09/20 12:00 36.9 11/09/20 11:00 58 23 135/96 (109) 96 Vapotherm 40.00 100.00 11/09/20 10:00 86 23 144/81 (102) 89 Vapotherm 40.00 100.00 11/09/20 09:56 92 Vapotherm 40.00 100 I & O 11/10/20 07:00 Intake Total 950 ml Output Total 1575 ml Balance -625 ml Height & Weight Height: '" Weight: lbs. oz. kg; 40.35 BMI Method: General Appearance: Anxious, Chronically ill, Mild Distress, Other (Fatigued) HEENT: PERRL/EOMI, Normal ENT Inspection, Pharynx Normal, Moist Mucous Membranes; No Pharyngeal Erythema; Other (no visible intraoral abscesses or drainage. ) Neck: Full Range of Motion, Normal Inspection, Non Tender Respiratory: Accessory Muscle Use, Decreased Breath Sounds Cardiovascular: Regular Rate, Rhythm Peripheral Pulses: 1+ Dorsalis Pedis (R), 1+ Left Dors-Pedis (L) Extremity: Normal Capillary Refill, No Calf Tenderness Neurologic/Psychiatric: Alert, Oriented x3 Skin: Normal Color, Warm/Dry Lymphatic: No Adenopathy Results Lab Laboratory Tests 11/09/20 07:06 11/10/20 05:21 Assessment/Plan Assessment/Plan SEe free text. Critical Care: Critically Ill Patient JOSTIN SHEEHAN MD Nov 10, 2020 09:45
[2020-11-10] MEDS: RT--FLUTICASONE/SALMETEROL 113-14 (AIRDUO RespiCLICK) IH SCH ×2 (10:12→15:35)
[2020-11-10] MEDS: ENOXAPARIN 40 MG/0.4 ML (LOVENOX) SYR SC SCH (17:35)
[2020-11-10] MEDS: MELATONIN 3 MG TABLET PO SCH (20:37)
[2020-11-10] MEDS: diphenhydrAMINE 25 MG TAB (BENADRYL) PO PRN (20:37)
[2020-11-11] VITALS (23 sets, daily range): BP systolic 103–136; BP diastolic 66–86
[2020-11-11] MEDS: RT-ALBUTEROL HFA 8.5 GM INHALER IH SCH ×6 (02:46→22:05)
[2020-11-11 05:19] LABS: BASOPHILS % (AUTO) 0 % (0-10); EOSINOPHILS # (AUTO) 0.2 10^3/uL (0.0-0.3); EOSINOPHILS % (AUTO) 2 % (0-10); HEMATOCRIT 47 % (40-54); HEMOGLOBIN 15.4 g/dL (13.3-17.7); LYMPHOCYTES # (AUTO) 1.5 10^3/uL (1.0-4.0); LYMPHOCYTES % (AUTO) 20 % (12-44); MEAN CORPUSCULAR HEMOGLOBIN 28 pg (25-34); MEAN CORPUSCULAR HGB CONC 33 g/dL (32-36); MEAN CORPUSCULAR VOLUME 85 fL (80-99); MEAN PLATELET VOLUME 9.7 fL (9.0-12.2); MONOCYTES # (AUTO) 0.3 10^3/uL (0.0-1.0); MONOCYTES % (AUTO) 4 % (0-12); NEUTROPHILS # (AUTO) 5.7 10^3/uL (1.8-7.8); NEUTROPHILS % (AUTO) 73 % (42-75); PLATELET COUNT 330 10^3/uL (130-400); WHITE BLOOD COUNT 7.8 10^3/uL (4.3-11.0)
[2020-11-11 05:44] LABS: POTASSIUM 4.2 MMOL/L (3.6-5.0)
[2020-11-11 05:49] LABS: PHOSPHORUS 4.3 MG/DL (2.3-4.7)
[2020-11-11 05:50] LABS: CREATININE SERUM 0.81 MG/DL (0.60-1.30)
[2020-11-11 05:52] LABS: MAGNESIUM 2.6 MG/DL (1.6-2.4)
[2020-11-11] MEDS: inSUlin ASPART (NovoLOG) 1 UNIT/0.01 ML (CHARGE PER UNIT) SC SCH ×4 (06:35→20:43)
[2020-11-11] MEDS: POTASSIUM CL 10MEQ/50ML IVPB 50 ML IV SCH (06:35)
[2020-11-11] MEDS: KCL 20 MEQ TAB (K-DUR) PO SCH (06:35)
[2020-11-11] MEDS: MAGNESIUM 1 GM/100 ML IVPB 100 ML IV SCH (06:35)
--- NOTE | 2020-11-11 06:41 | Progress Note - Hospitalist ---
Subjective HPI/CC On Admission Date Seen by Provider: Nov 11, 2020 Time Seen by Provider: 12:00 CC: SOB from Covid-19 pneumonia HPI: This is a 29yoWM who is presenting for the Regeneron infusion at [facility] found to be hypoxic and SOB, Pt was assessed in the ER found to have hypoxia and ABG/PO2 of 50. He required 7 liters of oxygen, his BMI is 40 and since he is at high risk for intubation he will be moved to cardiac step-down to be closer to pulmonary critical care. To note he reports he is not diabetic but he is having hyperglycemia with the steroid administration in addition he appears to have sleep apnea undiagnosed but he is a lifetime non-smoker. Subjective/Events-last exam Patient doing a little better On Vapotherm 40 L at 90% Sitting up in chair Bowels are moving Eating and drinking fairly well Review of Systems Pulmonary: Dyspnea Objective Exam Vital Signs Vital Signs Date Time Temp Pulse Resp B/P (MAP) Pulse Ox O2 Delivery O2 Flow Rate FiO2 11/11/20 18:42 93 Vapotherm 35.00 80 11/11/20 18:00 87 16 122/86 (98) 11/10/20 20:08 35.6 Capillary Refill : General Appearance: No Apparent Distress, WD/WN, Chronically ill, Obese Respiratory: Lungs Clear, Normal Breath Sounds, Decreased Breath Sounds Cardiovascular: Regular Rate, Rhythm Neurologic/Psychiatric: Alert, Oriented x3 Results/Procedures Lab Laboratory Tests 11/11/20 05:06 Patient resulted labs reviewed. Assessment/Plan Assessment and Plan Assess & Plan/Chief Complaint Assessment: COVID-19 pneumonia severe BMI 40 Plan: ICU status maintained Maxed on Vapotherm BiPAP initiated High risk for intubation High risk for within 2 weeks Lovenox Steroids 11/11/2020: Continue Vapotherm still high risk for intubation Critical Care Critically Ill Patient KIRTI CARROLL DO Nov 11, 2020 06:41
[2020-11-11] MEDS: polyethylene glycoL POWDER 17 GM (MIRALAX) PACK PO SCH ×2 (08:23→20:22)
[2020-11-11] MEDS: SENNA W/DOCUSATE (SENOKOT S) TABLET PO SCH ×2 (08:23→20:22)
[2020-11-11] MEDS: FAMOTIDINE 20 MG (PEPCID) TABLET PO SCH ×2 (08:23→20:21)
[2020-11-11] MEDS: guaiFENesin (MUCINEX) 600 MG TAB PO SCH ×2 (08:23→20:21)
--- NOTE | 2020-11-11 08:57 | Tele-ICU Progress Note ---
Subjective Date Seen by a Provider: Nov 11, 2020 Time Seen by a Provider: 08:00 Subjective/Events-last exam This virtual visit was conducted using real time audio/video. Thank you for asking us to see this patient for respiratory insufficiency and distress due to Covid pna, possible undiagnosed MARSHALL. [facility]: Recent events: Not accepted at [facility] as not on vent. Switched to VT. PE: Obese, comfortable on VT. VSS. O2 sat 93% on VT 40 L/100% HEENT: No obvious masses, adenopathy or JVD. Chest: clear to auscultation. CV: RRR S1 S2 No murmur or added sounds. Abd: Non-tender. Bowel sounds Y. : Unremarkable. Barker N. SENIOR SQL DEVELOPER/psychiatric: Alert and oriented, grossly intact. No obvious focal findings. Extremities: No edema. Capillary refill < 3 seconds. Skin: unremarkable. Results: CXR 11/07 w B infilts. A/P: Respiratory insufficiency/distress: Cont alb., Airduo, wean VT as freda. Available chart/ vitals / labs /images reviewed. Video assessment done using teleICU camera, rest of exam as per RN. Critical Care: critically ill patient. Cont Pepcid, Dex., Anu., insulin. Discussed with VLADISLAV Girard. Asked RN to reach out to eICU if any questions or concerns later. Time spent with patient/coordination of care with other health professionals (mins): 20 Sepsis Event Evaluation Height, Weight, BMI Height: '" Weight: lbs. oz. kg; 40.35 BMI Method: Exam Exam Patient acknowledged, consented, and participated in this virtual visit which was conducted using real time audio/video Vital Signs Date Time Temp Pulse Resp B/P (MAP) Pulse Ox O2 Delivery O2 Flow Rate FiO2 11/11/20 08:36 Vapotherm 40.00 100.00 11/11/20 08:00 61 28 103/67 (79) 95 NIV Bilevel 85.00 11/11/20 07:00 63 11/11/20 07:00 60 31 112/69 (83) 92 NIV Bilevel 85.00 11/11/20 06:59 65 34 94 70.00 11/11/20 06:00 66 17 136/81 (99) 92 NIV Bilevel 85.00 11/11/20 05:00 55 22 118/72 (87) 94 NIV Bilevel 85.00 11/11/20 04:00 61 33 114/75 (88) 94 NIV Bilevel 85.00 11/11/20 03:00 55 22 114/77 (89) 97 NIV Bilevel 85.00 11/11/20 02:46 59 28 61 75.00 11/11/20 02:00 66 25 121/80 (94) 94 NIV Bilevel 85.00 11/11/20 01:00 63 29 110/77 (88) 93 NIV Bilevel 85.00 11/11/20 01:00 63 11/11/20 00:00 59 24 108/72 (84) 92 NIV Bilevel 85.00 11/10/20 23:00 61 26 117/73 (88) 91 NIV Bilevel 85.00 11/10/20 22:18 NIV Bilevel 85.00 11/10/20 22:14 62 28 94 75.00 11/10/20 22:00 61 26 118/72 (87) 94 Vapotherm 40.00 100.00 11/10/20 21:00 63 23 118/78 (91) 93 Vapotherm 40.00 100.00 11/10/20 20:08 35.6 11/10/20 20:00 70 25 127/74 (91) 92 Vapotherm 40.00 100.00 11/10/20 20:00 92 Vapotherm 40.00 100 11/10/20 19:00 Vapotherm 40.00 100.00 11/10/20 19:00 64 24 140/95 (110) 94 Vapotherm 40.00 100.00 11/10/20 19:00 64 11/10/20 18:29 90 Vapotherm 40.00 100 11/10/20 18:00 67 29 126/90 (102) 91 NIV Bilevel 85.00 11/10/20 17:00 53 15 115/67 (83) 94 NIV Bilevel 85.00 11/10/20 16:05 35.7 11/10/20 16:00 64 17 125/69 (87) 92 NIV Bilevel 85.00 11/10/20 15:35 95 Vapotherm 40.00 100 11/10/20 15:00 68 16 121/63 (82) 94 NIV Bilevel 85.00 11/10/20 14:00 54 24 94 NIV Bilevel 85.00 11/10/20 13:00 60 11/10/20 13:00 83 23 90 NIV Bilevel 85.00 11/10/20 12:00 55 24 141/108 (119) 96 NIV Bilevel 85.00 11/10/20 11:28 36.6 11/10/20 11:00 61 26 117/86 (96) 93 NIV Bilevel 85.00 11/10/20 10:13 60 31 93 70.00 11/10/20 10:00 61 33 128/76 (93) 95 NIV Bilevel 85.00 11/10/20 09:00 55 23 115/80 (92) 95 NIV Bilevel 85.00 I & O 11/11/20 07:00 Intake Total 700 ml Output Total 1250 ml Balance -550 ml Height & Weight Height: '" Weight: lbs. oz. kg; 40.35 BMI Method: General Appearance: No Apparent Distress, Anxious, Chronically ill HEENT: PERRL/EOMI, Normal ENT Inspection, Pharynx Normal, Moist Mucous Membranes; No Pharyngeal Erythema; Other (no visible intraoral abscesses or drainage. ) Neck: Full Range of Motion, Normal Inspection, Non Tender Respiratory: No Accessory Muscle Use, No Respiratory Distress, Decreased Breath Sounds Cardiovascular: Regular Rate, Rhythm Peripheral Pulses: 1+ Dorsalis Pedis (R), 1+ Left Dors-Pedis (L) Extremity: Normal Capillary Refill, No Calf Tenderness Neurologic/Psychiatric: Alert, Oriented x3, No Motor/Sensory Deficits, Normal Mood/Affect Skin: Normal Color, Warm/Dry Lymphatic: No Adenopathy Results Lab Laboratory Tests 11/10/20 05:21 11/11/20 05:06 Assessment/Plan Assessment/Plan See free text. Critical Care: Critically Ill Patient JOSTIN SHEEHAN MD Nov 11, 2020 08:57
[2020-11-11] MEDS: RT--FLUTICASONE/SALMETEROL 113-14 (AIRDUO RespiCLICK) IH SCH ×2 (11:10→22:05)
[2020-11-11] MEDS: ENOXAPARIN 40 MG/0.4 ML (LOVENOX) SYR SC SCH (17:56)
[2020-11-11] MEDS: MELATONIN 3 MG TABLET PO SCH (20:21)
[2020-11-12] VITALS (24 sets, daily range): BP systolic 100–134; BP diastolic 53–92
[2020-11-12] MEDS: RT-ALBUTEROL HFA 8.5 GM INHALER IH SCH ×6 (02:06→21:50)
[2020-11-12 04:11] LABS: BASOPHILS % (AUTO) 0 % (0-10); EOSINOPHILS # (AUTO) 0.4 10^3/uL (0.0-0.3); EOSINOPHILS % (AUTO) 4 % (0-10); HEMATOCRIT 45 % (40-54); LYMPHOCYTES # (AUTO) 1.6 10^3/uL (1.0-4.0); LYMPHOCYTES % (AUTO) 19 % (12-44); MEAN CORPUSCULAR HEMOGLOBIN 28 pg (25-34); MEAN CORPUSCULAR HGB CONC 33 g/dL (32-36); MEAN CORPUSCULAR VOLUME 84 fL (80-99); MEAN PLATELET VOLUME 9.8 fL (9.0-12.2); MONOCYTES # (AUTO) 0.5 10^3/uL (0.0-1.0); MONOCYTES % (AUTO) 6 % (0-12); NEUTROPHILS # (AUTO) 5.7 10^3/uL (1.8-7.8); NEUTROPHILS % (AUTO) 70 % (42-75); PLATELET COUNT 354 10^3/uL (130-400); WHITE BLOOD COUNT 8.2 10^3/uL (4.3-11.0)
[2020-11-12 04:36] LABS: CALCIUM 8.8 MG/DL (8.5-10.1); CREATININE SERUM 0.71 MG/DL (0.60-1.30); MAGNESIUM 2.3 MG/DL (1.6-2.4); PHOSPHORUS 3.6 MG/DL (2.3-4.7)
[2020-11-12] MEDS: MAGNESIUM 1 GM/100 ML IVPB 100 ML IV SCH (05:06)
[2020-11-12] MEDS: inSUlin ASPART (NovoLOG) 1 UNIT/0.01 ML (CHARGE PER UNIT) SC SCH ×4 (05:06→20:48)
[2020-11-12] MEDS: KCL 20 MEQ TAB (K-DUR) PO SCH (05:06)
[2020-11-12] MEDS: POTASSIUM CL 10MEQ/50ML IVPB 50 ML IV SCH (05:06)
[2020-11-12] MEDS: guaiFENesin (MUCINEX) 600 MG TAB PO SCH ×2 (08:10→21:28)
[2020-11-12] MEDS: FAMOTIDINE 20 MG (PEPCID) TABLET PO SCH ×2 (08:10→21:29)
[2020-11-12] MEDS: polyethylene glycoL POWDER 17 GM (MIRALAX) PACK PO SCH ×2 (08:14→20:48)
[2020-11-12] MEDS: SENNA W/DOCUSATE (SENOKOT S) TABLET PO SCH ×2 (08:14→20:48)
--- NOTE | 2020-11-12 10:29 | Tele-ICU Progress Note ---
Subjective Date Seen by a Provider: Nov 12, 2020 Time Seen by a Provider: 10:28 Sepsis Event Evaluation Height, Weight, BMI Height: '" Weight: lbs. oz. kg; 40.35 BMI Method: Exam Exam Patient acknowledged, consented, and participated in this virtual visit which was conducted using real time audio/video Vital Signs Date Time Temp Pulse Resp B/P (MAP) Pulse Ox O2 Delivery O2 Flow Rate FiO2 11/12/20 10:00 58 35 112/74 (87) 93 Vapotherm 35.00 80.00 11/12/20 09:00 57 20 119/80 (93) 94 Vapotherm 35.00 80.00 11/12/20 08:34 35.6 52 95 70 11/12/20 08:15 Vapotherm 35.00 80.00 11/12/20 08:00 52 18 112/77 (89) 99 NIV Bilevel 70.00 11/12/20 08:00 Vapotherm 35.00 80 11/12/20 07:50 35.6 11/12/20 07:03 52 27 95 70.00 11/12/20 07:00 58 23 121/86 (98) 95 NIV Bilevel 70.00 11/12/20 06:27 50 11/12/20 06:00 48 34 120/81 (94) 98 NIV Bilevel 70.00 11/12/20 05:00 55 38 117/81 (92) 94 NIV Bilevel 70.00 11/12/20 04:00 54 31 115/80 (92) 96 NIV Bilevel 70.00 11/12/20 04:00 94 NIV Bilevel 70 11/12/20 03:05 36.5 NIV Bilevel 70.00 11/12/20 03:00 46 12 119/74 (89) 94 NIV Bilevel 70.00 11/12/20 02:07 52 27 95 70.00 11/12/20 02:00 46 114/72 (86) 96 NIV Bilevel 70.00 11/12/20 01:00 60 31 120/84 (96) 94 NIV Bilevel 70.00 11/12/20 01:00 60 11/12/20 00:00 93 NIV Bilevel 70 11/12/20 00:00 57 33 123/81 (95) 94 NIV Bilevel 70.00 9/26/21 23:28 36.7 NIV Bilevel 70.00 11/11/20 23:00 64 31 126/80 (95) 94 NIV Bilevel 70.00 11/11/20 22:06 68 30 94 70.00 11/11/20 22:03 93 Vapotherm 35.00 80 11/11/20 22:00 96 NIV Bilevel 70.00 11/11/20 22:00 69 111/74 (86) 92 NIV Bilevel 70.00 11/11/20 21:00 76 27 119/73 (83) 93 Vapotherm 35.00 80.00 11/11/20 20:30 93 18 113/76 (85) 94 Vapotherm 35.00 80.00 11/11/20 20:00 91 Vapotherm 35.00 80 11/11/20 19:00 36.5 Vapotherm 35.00 80.00 11/11/20 19:00 66 11/11/20 19:00 62 36 124/66 (89) 94 Vapotherm 35.00 80.00 11/11/20 18:42 93 Vapotherm 35.00 80 11/11/20 18:00 87 16 122/86 (98) 91 Vapotherm 35.00 80.00 11/11/20 17:00 51 29 124/78 (93) 96 Vapotherm 35.00 80.00 11/11/20 16:00 65 26 121/76 (91) 90 Vapotherm 35.00 80.00 11/11/20 15:49 Vapotherm 35.00 80.00 11/11/20 15:14 95 Vapotherm 35.00 80 11/11/20 15:00 51 25 117/67 (84) 95 Vapotherm 40.00 90.00 11/11/20 14:00 70 17 92 Vapotherm 40.00 90.00 11/11/20 13:00 67 23 93 Vapotherm 40.00 90.00 11/11/20 12:51 66 11/11/20 12:00 65 28 96 Vapotherm 40.00 90.00 11/11/20 11:10 96 Vapotherm 40.00 90 11/11/20 11:00 63 22 94 Vapotherm 40.00 90.00 I & O 11/12/20 07:00 Intake Total 1410 ml Output Total 1525 ml Balance -115 ml Height & Weight Height: '" Weight: lbs. oz. kg; 40.35 BMI Method: General Appearance: No Apparent Distress, WD/WN, Chronically ill, Obese HEENT: PERRL/EOMI, Normal ENT Inspection, Pharynx Normal, Moist Mucous Membranes; No Pharyngeal Erythema; Other (no visible intraoral abscesses or drainage. ) Neck: Full Range of Motion, Normal Inspection, Non Tender Respiratory: Lungs Clear, Normal Breath Sounds, Decreased Breath Sounds Cardiovascular: Regular Rate, Rhythm Peripheral Pulses: 1+ Dorsalis Pedis (R), 1+ Left Dors-Pedis (L) Extremity: Normal Capillary Refill, No Calf Tenderness Neurologic/Psychiatric: Alert, Oriented x3 Skin: Normal Color, Warm/Dry Lymphatic: No Adenopathy Results Lab Laboratory Tests 11/11/20 05:06 11/12/20 03:35 Assessment/Plan Assessment/Plan (Tele-ICU Physician , Progress Note ) Available chart/ vitals / labs / Images reviewed Video assessment done using teleICU camera, rest of exam as per RN Discussed with RN , EXAM PER RN Events overnight : Afebrile I/O = even Drips: none Pressors: , hemodynamically stable Consultants: Hospital course: 11/07- ARF , COVID 7l O2 11/09- transfer to ICU 100% 50 L vapothem 11/12 - vapotherm 35L 80% , Bipap at night 01/12 = 70 % A/P AHRF / ARDS due to severe COVID19 -11/12 - vapotherm 35L 80% -prone position if able , hope for compliance - conservative fluid strategy (aim for even or negative fluid balance - CXR < PCT AND DDIMER TOMORROW [id number]/COVID-19 PNA ( Not vaccinated , Dx 11/07 ) -Steroid IV - started 11/08 -Hypercoagulable state , DDIMER 0.66 on 11/10 > lovenox ppx dose 40 q 24 , follow D dimer - Actemra 11/08 monitor for superimposed bact PNA -PCT negative 11/10 , OFF abx Hyperglycemia, HB a1c 5.4 on admission - ISS , close f/up on steroids transaminitis likely due to COVID-19. Lines : periph (Central Line Necessity Reviewed) Barker 11/09 OG: Nutrition: po Analgesia: na Anxiety/ delirium xanax prn - not needed VTE Prophylaxis: lovenox Stress Ulcer Prophylaxis: PPI Glycemic Control: Plans in collaboration with bedside consultants and IM MDs. Discussed with RN to reach out if any questions or concerns A total of 33 minutes of critical care time was devoted to this patient today, required to treat and/or prevent further deterioration of critical care condition ( as above) RONI GUADARRAMA MD Nov 12, 2020 10:29
--- NOTE | 2020-11-12 10:42 | Pulmonary Procedures ---
Pulmonary Procedures Date of Procedure Date of Service: Nov 12, 2020 YULI GARY STUDENT Nov 12, 2020 10:42
--- NOTE | 2020-11-12 10:45 | Tele-ICU Progress Note ---
Subjective Date Seen by a Provider: Nov 12, 2020 Time Seen by a Provider: 07:00 Subjective/Events-last exam This is Dwain a 29 yo male on day 6 of his hospital stay with the chief complaint of C Sepsis Event Evaluation Height, Weight, BMI Height: '" Weight: lbs. oz. kg; 40.35 BMI Method: Exam Exam Patient acknowledged, consented, and participated in this virtual visit which was conducted using real time audio/video Vital Signs Date Time Temp Pulse Resp B/P (MAP) Pulse Ox O2 Delivery O2 Flow Rate FiO2 11/12/20 10:00 58 35 112/74 (87) 93 Vapotherm 35.00 80.00 11/12/20 09:00 57 20 119/80 (93) 94 Vapotherm 35.00 80.00 11/12/20 08:34 35.6 52 95 70 11/12/20 08:15 Vapotherm 35.00 80.00 11/12/20 08:00 52 18 112/77 (89) 99 NIV Bilevel 70.00 11/12/20 08:00 Vapotherm 35.00 80 11/12/20 07:50 35.6 11/12/20 07:03 52 27 95 70.00 11/12/20 07:00 58 23 121/86 (98) 95 NIV Bilevel 70.00 11/12/20 06:27 50 11/12/20 06:00 48 34 120/81 (94) 98 NIV Bilevel 70.00 11/12/20 05:00 55 38 117/81 (92) 94 NIV Bilevel 70.00 11/12/20 04:00 54 31 115/80 (92) 96 NIV Bilevel 70.00 11/12/20 04:00 94 NIV Bilevel 70 11/12/20 03:05 36.5 NIV Bilevel 70.00 11/12/20 03:00 46 12 119/74 (89) 94 NIV Bilevel 70.00 11/12/20 02:07 52 27 95 70.00 11/12/20 02:00 46 114/72 (86) 96 NIV Bilevel 70.00 11/12/20 01:00 60 31 120/84 (96) 94 NIV Bilevel 70.00 11/12/20 01:00 60 11/12/20 00:00 93 NIV Bilevel 70 11/12/20 00:00 57 33 123/81 (95) 94 NIV Bilevel 70.00 11/11/20 23:28 36.7 NIV Bilevel 70.00 11/11/20 23:00 64 31 126/80 (95) 94 NIV Bilevel 70.00 11/11/20 22:06 68 30 94 70.00 11/11/20 22:03 93 Vapotherm 35.00 80 11/11/20 22:00 96 NIV Bilevel 70.00 11/11/20 22:00 69 111/74 (86) 92 NIV Bilevel 70.00 11/11/20 21:00 76 27 119/73 (83) 93 Vapotherm 35.00 80.00 11/11/20 20:30 93 18 113/76 (85) 94 Vapotherm 35.00 80.00 11/11/20 20:00 91 Vapotherm 35.00 80 11/11/20 19:00 36.5 Vapotherm 35.00 80.00 11/11/20 19:00 66 11/11/20 19:00 62 36 124/66 (89) 94 Vapotherm 35.00 80.00 11/11/20 18:42 93 Vapotherm 35.00 80 11/11/20 18:00 87 16 122/86 (98) 91 Vapotherm 35.00 80.00 11/11/20 17:00 51 29 124/78 (93) 96 Vapotherm 35.00 80.00 11/11/20 16:00 65 26 121/76 (91) 90 Vapotherm 35.00 80.00 11/11/20 15:49 Vapotherm 35.00 80.00 11/11/20 15:14 95 Vapotherm 35.00 80 11/11/20 15:00 51 25 117/67 (84) 95 Vapotherm 40.00 90.00 11/11/20 14:00 70 17 92 Vapotherm 40.00 90.00 11/11/20 13:00 67 23 93 Vapotherm 40.00 90.00 11/11/20 12:51 66 11/11/20 12:00 65 28 96 Vapotherm 40.00 90.00 11/11/20 11:10 96 Vapotherm 40.00 90 11/11/20 11:00 63 22 94 Vapotherm 40.00 90.00 I & O 11/12/20 07:00 Intake Total 1410 ml Output Total 1525 ml Balance -115 ml Height & Weight Height: '" Weight: lbs. oz. kg; 40.35 BMI Method: General Appearance: No Apparent Distress, WD/WN, Chronically ill, Obese HEENT: PERRL/EOMI, Normal ENT Inspection, Pharynx Normal, Moist Mucous Membranes; No Pharyngeal Erythema; Other (no visible intraoral abscesses or drainage. ) Neck: Full Range of Motion, Normal Inspection, Non Tender Respiratory: Lungs Clear, Normal Breath Sounds, Decreased Breath Sounds Cardiovascular: Regular Rate, Rhythm Peripheral Pulses: 1+ Dorsalis Pedis (R), 1+ Left Dors-Pedis (L) Extremity: Normal Capillary Refill, No Calf Tenderness Neurologic/Psychiatric: Alert, Oriented x3 Skin: Normal Color, Warm/Dry Lymphatic: No Adenopathy Results Lab Laboratory Tests 11/11/20 05:06 11/12/20 03:35 YULI GARY MED STUDENT Nov 12, 2020 10:45
--- NOTE | 2020-11-12 10:52 | Pulmonary Progress Note ---
YULI GARY MED STUDENT 11/12/20 1052: Subjective Date Seen by a Provider: Nov 12, 2020 Time Seen by a Provider: 07:00 Subjective/Events-last exam This is Dwain a 29 yo male on day 6 of his hospital stay with the chief complaint of COVID-19. Pt was calm, cooperative, and engaged during questioning. He stated that he is feeling well this morning. Pt stated that he is eating and drinking well. He is currently on vapotherm of 35L at 80%. Nursing staff tried to get him to lay in the prone position but he stated that it was uncomfortable and refused. Review of Systems General: No Appetite Pulmonary: Dyspnea Sepsis Event Evaluation Height, Weight, BMI Height: '" Weight: lbs. oz. kg; 40.35 BMI Method: Focused Exam Time of Focused Exam: 07:00 Respiratory: Chest Non Tender, No Accessory Muscle Use, Crackles, Decreased Breath Sounds Cardiovascular: Regular Rate, Rhythm, No Edema, No Gallop, No Murmur, Normal Peripheral Pulses Skin: normal color, warm/dry Exam Exam Patient acknowledged, consented, and participated in this virtual visit which was conducted using real time audio/video Vital Signs Date Time Temp Pulse Resp B/P (MAP) Pulse Ox O2 Delivery O2 Flow Rate FiO2 11/12/20 10:00 58 35 112/74 (87) 93 Vapotherm 35.00 80.00 11/12/20 09:00 57 20 119/80 (93) 94 Vapotherm 35.00 80.00 11/12/20 08:34 35.6 52 95 70 11/12/20 08:15 Vapotherm 35.00 80.00 11/12/20 08:00 52 18 112/77 (89) 99 NIV Bilevel 70.00 11/12/20 08:00 Vapotherm 35.00 80 11/12/20 07:50 35.6 11/12/20 07:03 52 27 95 70.00 11/12/20 07:00 58 23 121/86 (98) 95 NIV Bilevel 70.00 11/12/20 06:27 50 11/12/20 06:00 48 34 120/81 (94) 98 NIV Bilevel 70.00 11/12/20 05:00 55 38 117/81 (92) 94 NIV Bilevel 70.00 11/12/20 04:00 54 31 115/80 (92) 96 NIV Bilevel 70.00 11/12/20 04:00 94 NIV Bilevel 70 11/12/20 03:05 36.5 NIV Bilevel 70.00 11/12/20 03:00 46 12 119/74 (89) 94 NIV Bilevel 70.00 11/12/20 02:07 52 27 95 70.00 11/12/20 02:00 46 114/72 (86) 96 NIV Bilevel 70.00 11/12/20 01:00 60 31 120/84 (96) 94 NIV Bilevel 70.00 11/12/20 01:00 60 11/12/20 00:00 93 NIV Bilevel 70 11/12/20 00:00 57 33 123/81 (95) 94 NIV Bilevel 70.00 11/11/20 23:28 36.7 NIV Bilevel 70.00 11/11/20 23:00 64 31 126/80 (95) 94 NIV Bilevel 70.00 11/11/20 22:06 68 30 94 70.00 11/11/20 22:03 93 Vapotherm 35.00 80 11/11/20 22:00 96 NIV Bilevel 70.00 11/11/20 22:00 69 111/74 (86) 92 NIV Bilevel 70.00 11/11/20 21:00 76 27 119/73 (83) 93 Vapotherm 35.00 80.00 11/11/20 20:30 93 18 113/76 (85) 94 Vapotherm 35.00 80.00 11/11/20 20:00 91 Vapotherm 35.00 80 11/11/20 19:00 36.5 Vapotherm 35.00 80.00 11/11/20 19:00 66 11/11/20 19:00 62 36 124/66 (89) 94 Vapotherm 35.00 80.00 11/11/20 18:42 93 Vapotherm 35.00 80 11/11/20 18:00 87 16 122/86 (98) 91 Vapotherm 35.00 80.00 11/11/20 17:00 51 29 124/78 (93) 96 Vapotherm 35.00 80.00 11/11/20 16:00 65 26 121/76 (91) 90 Vapotherm 35.00 80.00 11/11/20 15:49 Vapotherm 35.00 80.00 11/11/20 15:14 95 Vapotherm 35.00 80 11/11/20 15:00 51 25 117/67 (84) 95 Vapotherm 40.00 90.00 11/11/20 14:00 70 17 92 Vapotherm 40.00 90.00 11/11/20 13:00 67 23 93 Vapotherm 40.00 90.00 11/11/20 12:51 66 11/11/20 12:00 65 28 96 Vapotherm 40.00 90.00 11/11/20 11:10 96 Vapotherm 40.00 90 11/11/20 11:00 63 22 94 Vapotherm 40.00 90.00 I & O 11/12/20 07:00 Intake Total 1410 ml Output Total 1525 ml Balance -115 ml Height & Weight Height: '" Weight: lbs. oz. kg; 40.35 BMI Method: General Appearance: No Apparent Distress, WD/WN, Chronically ill, Obese HEENT: PERRL/EOMI, Pharynx Normal, Moist Mucous Membranes Neck: Normal Inspection, Non Tender, Supple Respiratory: Lungs Clear, Normal Breath Sounds, Decreased Breath Sounds Cardiovascular: Regular Rate, Rhythm, No Edema, No Gallop, No Murmur Peripheral Pulses: 1+ Dorsalis Pedis (R), 1+ Left Dors-Pedis (L) Gastrointestinal: normal bowel sounds, non tender, soft Extremity: Normal Capillary Refill, Normal Inspection, Non Tender, No Calf Tenderness, No Pedal Edema Neurologic/Psychiatric: Alert, Oriented x3, No Motor/Sensory Deficits, Normal Mood/Affect Skin: Normal Color, Warm/Dry Results Lab Laboratory Tests 11/11/20 05:06 11/12/20 03:35 Assessment/Plan Assessment/Plan COVID-19 pneumonia continue steriods and breathing treatments obesity BMI of 40 maintain ICU status continue supplemental O2 vapotherm during the day and BiPAP at night high risk for ventilation DVT/PE prophylaxis lovenox repeat CXR repeat d-dimer RONI GUADARRAMA MD 11/15/20 1430: Supervisory-Addendum Brief Verification & Attestation Participated in pt care: history, MDM, physical Personally performed: history, MDM, supervision of care Care discussed with: Medical Student Procedures: n/a A medical student performed and documented this service. I reviewed information documented by the medical student . Medical student performed patients physical exam . Medical decision making was done during tele-rounds with this medical student and a bedside RN . Please see my notes for details /clarif ication of assessment and plans YULI GARY MED STUDENT Nov 12, 2020 10:52 RONI GUADARRAMA MD Nov 15, 2020 14:30
[2020-11-12] MEDS: RT--FLUTICASONE/SALMETEROL 113-14 (AIRDUO RespiCLICK) IH SCH ×2 (10:53→18:35)
[2020-11-12] MEDS ORDERED: RT-ALBUTEROL HFA 8.5 GM INHALER IH PRN (12:00)
--- NOTE | 2020-11-12 16:45 | Progress Note ---
Subjective Subjective/Events-last exam States that he feels about the same. + shortness of breath with minimal improvement. Tolerating PO diet. Review of Systems General: Fatigue, Malaise Pulmonary: Dyspnea Cardiovascular: No: Chest Pain, Palpitations Gastrointestinal: No: Nausea, Vomiting, Abdominal Pain, Diarrhea, Constipation Neurological: Weakness, Incoordination Focused Exam Time of Focused Exam: 07:00 Objective Exam Last Set of Vital Signs Vital Signs Date Time Temp Pulse Resp B/P (MAP) Pulse Ox O2 Delivery O2 Flow Rate FiO2 11/12/20 15:32 Vapotherm 30.00 60 11/12/20 15:00 95 23 100/53 (69) 95 11/12/20 08:34 35.6 Capillary Refill : I&O Intake and Output 11/12/20 00:00 Intake Total 1300 ml Output Total 1550 ml Balance -250 ml Intake Oral 1300 ml Output Urine Total 1550 ml # Bowel Movements 1 General: Alert, Oriented X3, Cooperative, Mild Distress (with any activity) Lungs: Clear to Auscultation, Normal Air Movement Heart: Regular Rate, No Murmurs Abdomen: Normal Bowel Sounds, Soft, No Tenderness, No Masses Extremities: No Edema, No Tenderness/Swelling Skin: No Rashes Neuro: Normal Speech, Sensation Intact, Cranial Nerves 3-12 NL Psych/Mental Status: Mental Status NL, Mood NL Results/Procedures Lab Laboratory Tests 11/11/20 20:26: Glucometer 144H 11/12/20 03:35: White Blood Count 8.2, Red Blood Count 5.37, Hemoglobin 15.0, Hematocrit 45, Mean Corpuscular Volume 84, Mean Corpuscular Hemoglobin 28, Mean Corpuscular Hemoglobin Concent 33, Red Cell Distribution Width 11.9, Platelet Count 354, Mean Platelet Volume 9.8, Immature Granulocyte % (Auto) 1, Neutrophils (%) (Auto) 70, Lymphocytes (%) (Auto) 19, Monocytes (%) (Auto) 6, Eosinophils (%) (Auto) 4, Basophils (%) (Auto) 0, Neutrophils # (Auto) 5.7, Lymphocytes # (Auto) 1.6, Monocytes # (Auto) 0.5, Eosinophils # (Auto) 0.4H, Basophils # (Auto) 0.0, Immature Granulocyte # (Auto) 0.1, Sodium Level 139, Potassium Level 4.0, Chloride Level 103, Carbon Dioxide Level 23, Anion Gap 13, Blood Urea Nitrogen 21H, Creatinine 0.71, Estimat Glomerular Filtration Rate 133, BUN/Creatinine Ratio 30, Glucose Level 93, Calcium Level 8.8, Phosphorus Level 3.6, Magnesium Level 2.3 11/12/20 14:14: Glucometer 211H Assessment/Plan Assessment/Plan (1) Acute and chronic respiratory failure with hypoxia Status: Acute Assessment & Plan: 11/12: Vapotherm dependent, FiO2 80%, discussed the importance of IS and proning, will d/c tyler at patients request so he can prone, S/p Actrema, Dexamethasone, Tele ICU helping with ICU management (2) Pneumonia due to COVID-19 virus Status: Acute (3) BMI 39.0-39.9,adult Status: Chronic (4) DVT prophylaxis Status: Acute Assessment & Plan: - TATIANA Ghosh MD Nov 12, 2020 16:45
[2020-11-12] MEDS: ENOXAPARIN 40 MG/0.4 ML (LOVENOX) SYR SC SCH (18:54)
[2020-11-12] MEDS: MELATONIN 3 MG TABLET PO SCH (21:29)
[2020-11-13] VITALS (19 sets, daily range): BP systolic 97–124; BP diastolic 57–84
[2020-11-13] MEDS: RT-ALBUTEROL HFA 8.5 GM INHALER IH SCH ×6 (01:55→21:34)
[2020-11-13 06:12] LABS: BASOPHILS % (AUTO) 0 % (0-10); EOSINOPHILS # (AUTO) 0.5 10^3/uL (0.0-0.3); EOSINOPHILS % (AUTO) 6 % (0-10); HEMATOCRIT 45 % (40-54); HEMOGLOBIN 15.2 g/dL (13.3-17.7); LYMPHOCYTES # (AUTO) 2.2 10^3/uL (1.0-4.0); LYMPHOCYTES % (AUTO) 27 % (12-44); MEAN CORPUSCULAR HEMOGLOBIN 28 pg (25-34); MEAN CORPUSCULAR HGB CONC 34 g/dL (32-36); MEAN CORPUSCULAR VOLUME 84 fL (80-99); MEAN PLATELET VOLUME 9.5 fL (9.0-12.2); MONOCYTES # (AUTO) 0.6 10^3/uL (0.0-1.0); MONOCYTES % (AUTO) 8 % (0-12); NEUTROPHILS # (AUTO) 4.7 10^3/uL (1.8-7.8); NEUTROPHILS % (AUTO) 57 % (42-75); PLATELET COUNT 356 10^3/uL (130-400); WHITE BLOOD COUNT 8.1 10^3/uL (4.3-11.0)
[2020-11-13 07:01] LABS: CALCIUM 9.1 MG/DL (8.5-10.1); CREATININE SERUM 0.77 MG/DL (0.60-1.30); MAGNESIUM 2.4 MG/DL (1.6-2.4); PHOSPHORUS 4.1 MG/DL (2.3-4.7); POTASSIUM 4.2 MMOL/L (3.6-5.0)
--- NOTE | 2020-11-13 07:21 | Diagnostic Imaging Report ---
INDICATION: COVID positive, hypoxia. TECHNIQUE: Single view chest 6:45 AM. CORRELATION STUDY: 11/07/2020 FINDINGS: Based on structures appearing generally stable. Rather prominent extensive patchy bilateral pulmonary infiltrates are again demonstrated. Overall likely relatively stable depressed minimally improved. IMPRESSION: 1. Bilateral pulmonary infiltrates stable to perhaps minimally improved from prior. Dictated by: Dictated on workstation # [id number]
[2020-11-13] MEDS: inSUlin ASPART (NovoLOG) 1 UNIT/0.01 ML (CHARGE PER UNIT) SC SCH ×4 (07:48→20:03)
[2020-11-13] MEDS: MAGNESIUM 1 GM/100 ML IVPB 100 ML IV SCH (07:49)
[2020-11-13] MEDS: KCL 20 MEQ TAB (K-DUR) PO SCH (07:49)
[2020-11-13] MEDS: POTASSIUM CL 10MEQ/50ML IVPB 50 ML IV SCH (07:49)
[2020-11-13] MEDS: polyethylene glycoL POWDER 17 GM (MIRALAX) PACK PO SCH ×2 (09:14→20:04)
[2020-11-13] MEDS: guaiFENesin (MUCINEX) 600 MG TAB PO SCH ×2 (09:14→20:04)
[2020-11-13] MEDS: FAMOTIDINE 20 MG (PEPCID) TABLET PO SCH ×2 (09:14→20:04)
[2020-11-13] MEDS: SENNA W/DOCUSATE (SENOKOT S) TABLET PO SCH ×2 (09:15→20:04)
[2020-11-13] MEDS: RT--FLUTICASONE/SALMETEROL 113-14 (AIRDUO RespiCLICK) IH SCH ×2 (10:39→18:31)
--- NOTE | 2020-11-13 10:54 | Tele-ICU Progress Note ---
Subjective Date Seen by a Provider: Nov 13, 2020 Time Seen by a Provider: 10:53 Sepsis Event Evaluation Height, Weight, BMI Height: '" Weight: lbs. oz. kg; 40.35 BMI Method: Focused Exam Time of Focused Exam: 07:00 Exam Exam Patient acknowledged, consented, and participated in this virtual visit which was conducted using real time audio/video Vital Signs Date Time Temp Pulse Resp B/P (MAP) Pulse Ox O2 Delivery O2 Flow Rate FiO2 11/13/20 10:39 92 Vapotherm 25.00 55 11/13/20 10:00 69 13 104/73 (83) 95 Vapotherm 25.00 55.00 11/13/20 09:19 Vapotherm 25.00 55.00 11/13/20 09:00 60 32 109/74 (86) 96 NIV Bilevel 50.00 11/13/20 08:45 98 NIV Bilevel 50 11/13/20 08:00 61 18 116/82 (93) 96 NIV Bilevel 50.00 11/13/20 08:00 35.6 11/13/20 07:00 77 16 109/84 (92) 95 NIV Bilevel 50.00 11/13/20 06:54 64 20 97 50.00 11/13/20 06:35 59 11/13/20 06:13 NIV Bilevel 50.00 11/13/20 06:00 75 14 115/81 (92) 98 NIV Bilevel 50.00 11/13/20 05:00 64 24 114/73 (84) 97 NIV Bilevel 50.00 11/13/20 04:00 95 NIV Bilevel 50 11/13/20 04:00 49 26 102/62 (74) 98 NIV Bilevel 50.00 11/13/20 03:00 64 24 97/62 (73) 98 NIV Bilevel 50.00 11/13/20 03:00 36.1 NIV Bilevel 50.00 11/13/20 02:00 59 23 118/79 (87) 98 NIV Bilevel 50.00 11/13/20 01:59 NIV Bilevel 50.00 11/13/20 01:55 58 26 95 50.00 11/13/20 01:00 52 29 102/63 (74) 98 NIV Bilevel 60.00 11/13/20 01:00 61 11/13/20 00:00 96 NIV Bilevel 60 11/13/20 00:00 68 8 122/84 (94) 99 NIV Bilevel 60.00 11/12/20 23:00 36.2 NIV Bilevel 60.00 11/12/20 23:00 59 114/77 (89) 97 NIV Bilevel 60.00 11/12/20 21:50 94 Vapotherm 30.00 70 11/12/20 21:00 61 30 122/77 (92) 96 Vapotherm 30.00 70.00 11/12/20 20:00 93 Vapotherm 30.00 70 11/12/20 20:00 68 24 110/68 (78) 94 Vapotherm 30.00 70.00 11/12/20 19:51 35.9 11/12/20 19:00 Vapotherm 30.00 70.00 11/12/20 19:00 75 11/12/20 19:00 75 25 126/92 (104) 93 Vapotherm 30.00 70.00 11/12/20 18:36 92 Vapotherm 30.00 70 11/12/20 18:00 63 30 134/83 (100) 97 Vapotherm 30.00 70.00 11/12/20 17:00 94 18 85 Vapotherm 30.00 70.00 11/12/20 16:00 79 22 93 Vapotherm 30.00 70.00 11/12/20 15:32 Vapotherm 30.00 60 11/12/20 15:00 95 23 100/53 (69) 95 Vapotherm 30.00 70.00 11/12/20 14:32 96 Vapotherm 35.00 70 11/12/20 14:00 68 27 126/77 (93) 95 Vapotherm 30.00 70.00 11/12/20 13:00 62 117/88 (98) 95 Vapotherm 30.00 70.00 11/12/20 12:30 Vapotherm 30.00 70 11/12/20 12:23 74 11/12/20 12:00 50 113/70 (84) 97 Vapotherm 30.00 70.00 11/12/20 11:39 Vapotherm 30.00 70.00 11/12/20 11:00 56 16 113/70 (84) 95 Vapotherm 35.00 80.00 11/12/20 10:57 Vapotherm 35.00 70 I & O 11/13/20 07:00 Intake Total 2262 ml Output Total 1125 ml Balance 1137 ml Height & Weight Height: '" Weight: lbs. oz. kg; 40.35 BMI Method: General Appearance: No Apparent Distress, WD/WN, Chronically ill, Obese HEENT: PERRL/EOMI, Pharynx Normal, Moist Mucous Membranes Neck: Normal Inspection, Non Tender, Supple Respiratory: Lungs Clear, Normal Breath Sounds, Decreased Breath Sounds Cardiovascular: Regular Rate, Rhythm, No Edema, No Gallop, No Murmur Peripheral Pulses: 1+ Dorsalis Pedis (R), 1+ Left Dors-Pedis (L) Gastrointestinal: normal bowel sounds, non tender, soft Extremity: Normal Capillary Refill, Normal Inspection, Non Tender, No Calf Tenderness, No Pedal Edema Neurologic/Psychiatric: Alert, Oriented x3, No Motor/Sensory Deficits, Normal M ood/Affect Skin: Normal Color, Warm/Dry Results Lab Laboratory Tests 11/12/20 03:35 11/13/20 06:00 Assessment/Plan Assessment/Plan (Tele-ICU Physician , Progress Note ) Available chart/ vitals / labs / Images reviewed Video assessment done using teleICU camera, rest of exam as per RN Discussed with RN , EXAM PER RN Events overnight : Afebrile I/O = pos 700 Drips: none Pressors: , hemodynamically stable Consultants: Hospital course: 11/07- ARF , COVID 7l O2 11/09- transfer to ICU 100% 50 L vapothem 11/12 - vapotherm 35L 80% , Bipap at night 01/12 = 70 % A/P AHRF / ARDS due to severe COVID19 -11/12 - vapotherm 25L 55% , BIPAP 50 % night - IMPROVING -prone position if able , hope for compliance - conservative fluid strategy (aim for even or negative fluid balance JIOF-Qgygmzirpfy-9/COVID-19 PNA ( Not vaccinated , Dx 11/07 ) -Steroid IV - started 11/08 -Hypercoagulable state , DDIMER 0.66 on 11/10 > lovenox ppx dose 40 q 24 , D dimer 11/13 WNL - Actemra 11/08 monitor for superimposed bact PNA -PCT negative 11/10 and 11/13 , OFF abx Hyperglycemia, HB a1c 5.4 on admission - ISS , close f/up on steroids transaminitis likely due to COVID-19. Lines : periph (Central Line Necessity Reviewed) Barker 11/09 - removed 11/13 OG: Nutrition: po Analgesia: na Anxiety/ delirium xanax prn - not needed VTE Prophylaxis: lovenox Stress Ulcer Prophylaxis: PPI Glycemic Control: Plans in collaboration with bedside consultants and IM MDs. Discussed with RN to reach out if any questions or concerns A total of 33 minutes of critical care time was devoted to this patient today, required to treat and/or prevent further deterioration of critical care condition ( as above) RONI GUADARRAMA MD Nov 13, 2020 10:53
--- NOTE | 2020-11-13 12:20 | Pulmonary Progress Note ---
LES LOWE MED STUDENT 11/13/20 1220: Subjective Date Seen by a Provider: Nov 13, 2020 Time Seen by a Provider: 07:25 Subjective/Events-last exam Dwain states no new pain. Complains of continued SOB. He is on bipap at 16/12 and 30% oxygen. Night RN notes he has been educated multiple times on benefits of prone positioning but feels it is uncomfortable and does not prone. Sepsis Event Evaluation Height, Weight, BMI Height: '" Weight: lbs. oz. kg; 40.35 BMI Method: Focused Exam Time of Focused Exam: 07:00 Exam Exam Patient acknowledged, consented, and participated in this virtual visit which was conducted using real time audio/video Vital Signs Date Time Temp Pulse Resp B/P (MAP) Pulse Ox O2 Delivery O2 Flow Rate FiO2 11/13/20 11:00 56 19 97/57 (70) 97 Vapotherm 25.00 55.00 11/13/20 10:39 92 Vapotherm 25.00 55 11/13/20 10:00 69 13 104/73 (83) 95 Vapotherm 25.00 55.00 11/13/20 09:19 Vapotherm 25.00 55.00 11/13/20 09:00 60 32 109/74 (86) 96 NIV Bilevel 50.00 11/13/20 08:45 98 NIV Bilevel 50 11/13/20 08:00 61 18 116/82 (93) 96 NIV Bilevel 50.00 11/13/20 08:00 35.6 11/13/20 07:00 77 16 109/84 (92) 95 NIV Bilevel 50.00 11/13/20 06:54 64 20 97 50.00 11/13/20 06:35 59 11/13/20 06:13 NIV Bilevel 50.00 11/13/20 06:00 75 14 115/81 (92) 98 NIV Bilevel 50.00 11/13/20 05:00 64 24 114/73 (84) 97 NIV Bilevel 50.00 11/13/20 04:00 95 NIV Bilevel 50 11/13/20 04:00 49 26 102/62 (74) 98 NIV Bilevel 50.00 11/13/20 03:00 64 24 97/62 (73) 98 NIV Bilevel 50.00 11/13/20 03:00 36.1 NIV Bilevel 50.00 11/13/20 02:00 59 23 118/79 (87) 98 NIV Bilevel 50.00 11/13/20 01:59 NIV Bilevel 50.00 11/13/20 01:55 58 26 95 50.00 11/13/20 01:00 52 29 102/63 (74) 98 NIV Bilevel 60.00 11/13/20 01:00 61 11/13/20 00:00 96 NIV Bilevel 60 11/13/20 00:00 68 8 122/84 (94) 99 NIV Bilevel 60.00 11/12/20 23:00 36.2 NIV Bilevel 60.00 11/12/20 23:00 59 114/77 (89) 97 NIV Bilevel 60.00 11/12/20 21:50 94 Vapotherm 30.00 70 11/12/20 21:00 61 30 122/77 (92) 96 Vapotherm 30.00 70.00 11/12/20 20:00 93 Vapotherm 30.00 70 11/12/20 20:00 68 24 110/68 (78) 94 Vapotherm 30.00 70.00 11/12/20 19:51 35.9 11/12/20 19:00 Vapotherm 30.00 70.00 11/12/20 19:00 75 11/12/20 19:00 75 25 126/92 (104) 93 Vapotherm 30.00 70.00 11/12/20 18:36 92 Vapotherm 30.00 70 11/12/20 18:00 63 30 134/83 (100) 97 Vapotherm 30.00 70.00 11/12/20 17:00 94 18 85 Vapotherm 30.00 70.00 11/12/20 16:00 79 22 93 Vapotherm 30.00 70.00 11/12/20 15:32 Vapotherm 30.00 60 11/12/20 15:00 95 23 100/53 (69) 95 Vapotherm 30.00 70.00 11/12/20 14:32 96 Vapotherm 35.00 70 11/12/20 14:00 68 27 126/77 (93) 95 Vapotherm 30.00 70.00 11/12/20 13:00 62 117/88 (98) 95 Vapotherm 30.00 70.00 11/12/20 12:30 Vapotherm 30.00 70 11/12/20 12:23 74 I & O 11/13/20 07:00 Intake Total 2262 ml Output Total 1125 ml Balance 1137 ml Height & Weight Height: '" Weight: lbs. oz. kg; 40.35 BMI Method: General Appearance: No Apparent Distress, WD/WN, Obese HEENT: PERRL/EOMI, Pharynx Normal, Moist Mucous Membranes Neck: Normal Inspection, Non Tender, Supple Respiratory: No Crackles; Decreased Breath Sounds; No Stridor, No Wheezing; Other (coarse breath sounds. On Bipap) Cardiovascular: Regular Rate, Rhythm, No Edema, No Gallop, No Murmur Peripheral Pulses: 1+ Dorsalis Pedis (R), 1+ Left Dors-Pedis (L) Gastrointestinal: normal bowel sounds, non tender, soft Extremity: Normal Capillary Refill, Normal Inspection, Non Tender, No Calf Tenderness, No Pedal Edema Neurologic/Psychiatric: Alert, Oriented x3, No Motor/Sensory Deficits, Normal Mood/Affect Skin: Normal Color, Warm/Dry Results Lab Laboratory Tests 11/12/20 03:35 11/13/20 06:00 Assessment/Plan Assessment/Plan Covid 19 ARDS -on day 6 of decadron, albuterol inhalers, mucinex, robitussin -Bipap 16/12 at 30% O2 overnight -CXR stable compared to previous borderline hyponatremia Monitor for development of Covid PNA -PCT low 0.01 GI prophylaxis -pepcid DVT/PE prophylaxis -Lovenox 40 RONI GUADARRAMA MD 11/15/20 0909: Subjective Date Seen by a Provider: Nov 13, 2020 Supervisory-Addendum Brief Verification & Attestation Participated in pt care: history, MDM, physical Personally performed: history, MDM, supervision of care Care discussed with: Medical Student Procedures: n/a A medical student performed and documented this service. I reviewed all information documented by the medical student . Medical student performed santana ents physical exam . Medical decision making was done during tele-rounds with this medical student and a bedside RN . Please see my notes for details /clarification. LES LOWE MED STUDENT Nov 13, 2020 12:20 RONI GUADARRAMA MD Nov 15, 2020 09:09
[2020-11-13] MEDS: ENOXAPARIN 40 MG/0.4 ML (LOVENOX) SYR SC SCH (17:17)
[2020-11-13] MEDS: ACETAMINOPHEN 325 MG TABLET PO PRN (17:23)
[2020-11-13] MEDS: diphenhydrAMINE 25 MG TAB (BENADRYL) PO PRN (20:03)
[2020-11-13] MEDS: MELATONIN 3 MG TABLET PO SCH (20:04)
--- NOTE | 2020-11-13 22:23 | Progress Note ---
Subjective Subjective/Events-last exam Patient states that he is feeling better. Tolerating PO diet. Review of Systems Pulmonary: Dyspnea, Cough Cardiovascular: No: Chest Pain, Palpitations Gastrointestinal: No: Nausea, Vomiting, Abdominal Pain, Diarrhea, Constipation Neurological: Weakness, Incoordination Focused Exam Time of Focused Exam: 07:00 Objective Exam Last Set of Vital Signs Vital Signs Date Time Temp Pulse Resp B/P (MAP) Pulse Ox O2 Delivery O2 Flow Rate FiO2 11/13/20 21:34 95 Vapotherm 25.00 50 11/13/20 21:00 55 16 11/13/20 20:47 35.8 Capillary Refill : I&O Intake and Output 11/13/20 00:00 Intake Total 2262 ml Output Total 1525 ml Balance 737 ml Intake Oral 2262 ml Output Urine Total 1525 ml # Voids 1 # Bowel Movements 1 General: Alert, Oriented X3, Cooperative, Mild Distress (with minimal activity) Lungs: Clear to Auscultation, Normal Air Movement Heart: Regular Rate, No Murmurs Abdomen: Normal Bowel Sounds, Soft, No Tenderness, No Masses Extremities: No Edema, No Tenderness/Swelling Skin: No Rashes, No Breakdown Neuro: Normal Speech, Strength at 5/5 X4 Ext, Sensation Intact, Cranial Nerves 3-12 NL Results/Procedures Lab Laboratory Tests 11/13/20 06:00: White Blood Count 8.1, Red Blood Count 5.43, Hemoglobin 15.2, Hematocrit 45, Mean Corpuscular Volume 84, Mean Corpuscular Hemoglobin 28, Mean Corpuscular Hemoglobin Concent 34, Red Cell Distribution Width 11.9, Platelet Count 356, Mean Platelet Volume 9.5, Immature Granulocyte % (Auto) 2, Neutrophils (%) (Auto) 57, Lymphocytes (%) (Auto) 27, Monocytes (%) (Auto) 8, Eosinophils (%) (Auto) 6, Basophils (%) (Auto) 0, Neutrophils # (Auto) 4.7, Lymphocytes # (Auto) 2.2, Monocytes # (Auto) 0.6, Eosinophils # (Auto) 0.5H, Basophils # (Auto) 0.0, Immature Granulocyte # (Auto) 0.2H, D-Dimer 0.37, Sodium Level 136, Potassium Level 4.2, Chloride Level 103, Carbon Dioxide Level 23, Anion Gap 10, Blood Urea Nitrogen 22H, Creatinine 0.77, Estimat Glomerular Filtration Rate 121, BUN/Creatinine Ratio 29, Glucose Level 90, Calcium Level 9.1, Phosphorus Level 4.1, Magnesium Level 2.4, Procalcitonin 0.01 11/13/20 11:36: Glucometer 97 11/13/20 17:23: Glucometer 108 11/13/20 19:53: Glucometer 124H Assessment/Plan Assessment/Plan (1) Acute and chronic respiratory failure with hypoxia Status: Acute Assessment & Plan: 11/12: Vapotherm dependent, FiO2 80%, discussed the importanc e of IS and proning, will d/c tyler at patients request so he can prone, S/p Actrema, Dexamethasone, Tele ICU helping with ICU management 11/13: Will continue to titrate as tolerated, plan on transfer to Med/Surg in AM (2) Pneumonia due to COVID-19 virus Status: Acute (3) BMI 39.0-39.9,adult Status: Chronic (4) DVT prophylaxis Status: Acute Assessment & Plan: - TATIANA Ghosh MD Nov 13, 2020 22:23
[2020-11-14] VITALS (17 sets, daily range): BP systolic 103–138; BP diastolic 53–85
[2020-11-14] MEDS: RT-ALBUTEROL HFA 8.5 GM INHALER IH SCH ×6 (01:36→22:38)
[2020-11-14 05:55] LABS: BASOPHILS % (AUTO) 0 % (0-10); EOSINOPHILS # (AUTO) 0.2 10^3/uL (0.0-0.3); EOSINOPHILS % (AUTO) 3 % (0-10); HEMATOCRIT 43 % (40-54); HEMOGLOBIN 14.6 g/dL (13.3-17.7); LYMPHOCYTES # (AUTO) 2.2 10^3/uL (1.0-4.0); LYMPHOCYTES % (AUTO) 29 % (12-44); MEAN CORPUSCULAR HEMOGLOBIN 29 pg (25-34); MEAN CORPUSCULAR HGB CONC 34 g/dL (32-36); MEAN CORPUSCULAR VOLUME 85 fL (80-99); MEAN PLATELET VOLUME 9.6 fL (9.0-12.2); MONOCYTES # (AUTO) 0.8 10^3/uL (0.0-1.0); MONOCYTES % (AUTO) 10 % (0-12); NEUTROPHILS # (AUTO) 4.2 10^3/uL (1.8-7.8); NEUTROPHILS % (AUTO) 55 % (42-75); PLATELET COUNT 354 10^3/uL (130-400); WHITE BLOOD COUNT 7.6 10^3/uL (4.3-11.0)
[2020-11-14] MEDS: MAGNESIUM 1 GM/100 ML IVPB 100 ML IV SCH (05:58)
[2020-11-14] MEDS: KCL 20 MEQ TAB (K-DUR) PO SCH (05:58)
[2020-11-14] MEDS: POTASSIUM CL 10MEQ/50ML IVPB 50 ML IV SCH (05:58)
[2020-11-14 06:11] LABS: POTASSIUM 4.2 MMOL/L (3.6-5.0)
[2020-11-14 06:12] LABS: CALCIUM 9.1 MG/DL (8.5-10.1)
[2020-11-14 06:16] LABS: PHOSPHORUS 4.3 MG/DL (2.3-4.7)
[2020-11-14 06:17] LABS: CREATININE SERUM 0.79 MG/DL (0.60-1.30)
[2020-11-14 06:19] LABS: MAGNESIUM 2.3 MG/DL (1.6-2.4)
[2020-11-14] MEDS: inSUlin ASPART (NovoLOG) 1 UNIT/0.01 ML (CHARGE PER UNIT) SC SCH ×4 (06:25→20:23)
[2020-11-14] MEDS: RT--FLUTICASONE/SALMETEROL 113-14 (AIRDUO RespiCLICK) IH SCH ×2 (07:08→19:21)
[2020-11-14] MEDS: SENNA W/DOCUSATE (SENOKOT S) TABLET PO SCH ×2 (08:00→21:35)
[2020-11-14] MEDS: polyethylene glycoL POWDER 17 GM (MIRALAX) PACK PO SCH ×2 (08:00→21:35)
[2020-11-14] MEDS: FAMOTIDINE 20 MG (PEPCID) TABLET PO SCH ×2 (08:33→21:36)
[2020-11-14] MEDS: guaiFENesin (MUCINEX) 600 MG TAB PO SCH ×2 (08:33→21:36)
--- NOTE | 2020-11-14 09:05 | Tele-ICU Progress Note ---
Subjective Date Seen by a Provider: Nov 14, 2020 Time Seen by a Provider: 11:32 Subjective/Events-last exam Now on FIO2 45%, 15 lpm high flow oxgyen, spont RR 24, SpO2 97% Remains on Decadron IV, CXR from yesterday looks about same Sepsis Event Evaluation Height, Weight, BMI Height: '" Weight: lbs. oz. kg; 40.35 BMI Method: Focused Exam Time of Focused Exam: 07:00 Exam Exam Patient acknowledged, consented, and participated in this virtual visit which was conducted using real time audio/video Vital Signs Date Time Temp Pulse Resp B/P (MAP) Pulse Ox O2 Delivery O2 Flow Rate FiO2 11/14/20 08:47 95 Vapotherm 40.00 45 11/14/20 08:05 35.6 11/14/20 07:08 94 Vapotherm 15.00 45 11/14/20 07:00 Vapotherm 15.00 45.00 11/14/20 06:45 55 11/14/20 06:00 54 24 117/78 (92) 94 NIV Bilevel 40.00 11/14/20 05:00 54 28 111/67 (79) 95 NIV Bilevel 40.00 11/14/20 04:00 48 14 113/75 (92) 97 NIV Bilevel 40.00 11/14/20 04:00 98 NIV Bilevel 40 11/14/20 03:00 50 32 124/74 (88) 99 NIV Bilevel 40.00 11/14/20 02:00 58 37 105/67 (79) 97 NIV Bilevel 40.00 11/14/20 01:36 58 28 96 40.00 11/14/20 01:32 NIV Bilevel 40.00 11/14/20 01:00 57 11/14/20 01:00 57 19 120/70 (82) 98 NIV Bilevel 50.00 11/14/20 00:00 98 NIV Bilevel 50 11/14/20 00:00 59 25 106/54 (73) 98 NIV Bilevel 50.00 11/14/20 00:00 36.4 11/13/20 23:35 64 21 96 NIV Bilevel 50.00 11/13/20 23:00 70 20 120/71 (87) 95 Vapotherm 20.00 50.00 11/13/20 22:20 56 28 124/64 (84) 98 Vapotherm 20.00 50.00 11/13/20 21:34 95 Vapotherm 25.00 50 11/13/20 21:00 55 16 92 Vapotherm 20.00 50.00 11/13/20 20:47 35.8 11/13/20 20:00 96 Vapotherm 20.00 50 11/13/20 20:00 59 27 98 Vapotherm 20.00 50.00 11/13/20 19:00 82 11/13/20 19:00 82 24 95 Vapotherm 20.00 50.00 11/13/20 19:00 Vapotherm 20.00 50.00 11/13/20 18:28 96 Vapotherm 25.00 55 11/13/20 18:00 82 22 94 Vapotherm 25.00 50.00 11/13/20 17:15 Vapotherm 25.00 50.00 11/13/20 17:00 123/84 (97) 94 Vapotherm 25.00 55.00 11/13/20 16:15 96 Vapotherm 25.00 55 11/13/20 16:00 95 Vapotherm 25.00 55.00 11/13/20 15:00 98 Vapotherm 25.00 55.00 11/13/20 14:47 96 Vapotherm 25.00 55 11/13/20 14:00 61 29 97 Vapotherm 25.00 55.00 11/13/20 13:00 62 14 111/71 (84) 98 Vapotherm 25.00 55.00 11/13/20 13:00 50 11/13/20 12:00 68 16 111/71 (84) 96 Vapotherm 25.00 55.00 11/13/20 12:00 96 Vapotherm 25.00 55 11/13/20 12:00 35.6 11/13/20 11:00 56 19 97/57 (70) 97 Vapotherm 25.00 55.00 11/13/20 10:39 92 Vapotherm 25.00 55 11/13/20 10:00 69 13 104/73 (83) 95 Vapotherm 25.00 55.00 11/13/20 09:19 Vapotherm 25.00 55.00 I & O 11/14/20 07:00 Intake Total 1530 ml Output Total 600 ml Balance 930 ml Height & Weight Height: '" Weight: lbs. oz. kg; 40.35 BMI Method: General Appearance: No Apparent Distress, WD/WN, Obese HEENT: PERRL/EOMI, Pharynx Normal, Moist Mucous Membranes Neck: Normal Inspection, Non Tender, Supple Respiratory: Lungs Clear; No Crackles; Decreased Breath Sounds; No Stridor, No Wheezing; Other (coarse breath sounds. On Bipap) Cardiovascular: Regular Rate, Rhythm, No Edema, No Gallop, No Murmur Peripheral Pulses: 1+ Dorsalis Pedis (R), 1+ Left Dors-Pedis (L) Gastrointestinal: normal bowel sounds, non tender, soft Extremity: Normal Capillary Refill, Normal Inspection, Non Tender, No Calf Tenderness, No Pedal Edema Neurologic/Psychiatric: Alert, Oriented x3, No Motor/Sensory Deficits, Normal Mood/Affect Skin: Normal Color, Warm/Dry Results Lab Laboratory Tests 11/13/20 06:00 11/14/20 05:45 Assessment/Plan Assessment/Plan A/P AHRF / ARDS due to severe COVID19 -11/12 - vapotherm 25L 55% , BIPAP 50 % night - IMPROVING -prone position if able , hope for compliance - conservative fluid strategy (aim for even or negative fluid balance Now on 3 lpm NC with SpO2 95% Can go to general medical floor EXIF-Pduqtaattno-0/COVID-19 PNA ( Not vaccinated , Dx 11/07 ) -Steroid IV - started 11/08 -Hypercoagulable state , DDIMER 0.66 on 11/10 > lovenox ppx dose 40 q 24 , D dimer 11/13 WNL - Actemra 11/08 monitor for superimposed bact PNA -PCT negative 11/10 and 11/13 , OFF abx Hyperglycemia, HB a1c 5.4 on admission - ISS , close f/up on steroids Critical Care: Critically Ill Patient Time spent with patient (mins): HOA HOLBROOK MD Nov 14, 2020 09:05
--- NOTE | 2020-11-14 12:34 | Pulmonary Progress Note ---
Subjective Date Seen by a Provider: Nov 14, 2020 Time Seen by a Provider: 07:20 Subjective/Events-last exam Dwain is on vapotherm this morning at 25LPM + 50% FiO2. He states he is feeling less short of breath, "almost like a normal person". Denies fevers, chills, nausea, abdominal pain, constipation, diarrhea, leg pain. His cough is nonproductive. Denies chest pain. Sepsis Event Evaluation Height, Weight, BMI Height: '" Weight: lbs. oz. kg; 40.35 BMI Method: Focused Exam Time of Focused Exam: 07:00 Exam Exam Patient acknowledged, consented, and participated in this virtual visit which was conducted using real time audio/video Vital Signs Date Time Temp Pulse Resp B/P (MAP) Pulse Ox O2 Delivery O2 Flow Rate FiO2 11/14/20 12:09 94 High Flow N/C 3.00 11/14/20 12:00 35.9 11/14/20 11:00 71 30 110/75 (87) 92 Vapotherm 15.00 45.00 11/14/20 10:00 72 36 131/78 (95) 93 Vapotherm 15.00 45.00 11/14/20 09:51 96 High Flow N/C 3.00 11/14/20 09:00 70 14 129/85 (100) 96 Vapotherm 15.00 45.00 11/14/20 08:47 95 Vapotherm 40.00 45 11/14/20 08:05 35.6 11/14/20 08:00 80 23 114/74 (87) 94 Vapotherm 15.00 45.00 11/14/20 07:08 94 Vapotherm 15.00 45 11/14/20 07:00 Vapotherm 15.00 45.00 11/14/20 07:00 57 23 116/69 (85) 96 Vapotherm 15.00 45.00 11/14/20 06:45 55 11/14/20 06:00 54 24 117/78 (92) 94 NIV Bilevel 40.00 11/14/20 05:00 54 28 111/67 (79) 95 NIV Bilevel 40.00 11/14/20 04:00 48 14 113/75 (92) 97 NIV Bilevel 40.00 11/14/20 04:00 98 NIV Bilevel 40 11/14/20 03:00 50 32 124/74 (88) 99 NIV Bilevel 40.00 11/14/20 02:00 58 37 105/67 (79) 97 NIV Bilevel 40.00 11/14/20 01:36 58 28 96 40.00 11/14/20 01:32 NIV Bilevel 40.00 11/14/20 01:00 57 11/14/20 01:00 57 19 120/70 (82) 98 NIV Bilevel 50.00 11/14/20 00:00 98 NIV Bilevel 50 11/14/20 00:00 59 25 106/54 (73) 98 NIV Bilevel 50.00 11/14/20 00:00 36.4 11/13/20 23:35 64 21 96 NIV Bilevel 50.00 11/13/20 23:00 70 20 120/71 (87) 95 Vapotherm 20.00 50.00 11/13/20 22:20 56 28 124/64 (84) 98 Vapotherm 20.00 50.00 11/13/20 21:34 95 Vapotherm 25.00 50 11/13/20 21:00 55 16 92 Vapotherm 20.00 50.00 11/13/20 20:47 35.8 11/13/20 20:00 96 Vapotherm 20.00 50 11/13/20 20:00 59 27 98 Vapotherm 20.00 50.00 11/13/20 19:00 82 11/13/20 19:00 82 24 95 Vapotherm 20.00 50.00 11/13/20 19:00 Vapotherm 20.00 50.00 11/13/20 18:28 96 Vapotherm 25.00 55 11/13/20 18:00 82 22 94 Vapotherm 25.00 50.00 11/13/20 17:15 Vapotherm 25.00 50.00 11/13/20 17:00 123/84 (97) 94 Vapotherm 25.00 55.00 11/13/20 16:15 96 Vapotherm 25.00 55 11/13/20 16:00 95 Vapotherm 25.00 55.00 11/13/20 15:00 98 Vapotherm 25.00 55.00 11/13/20 14:47 96 Vapotherm 25.00 55 11/13/20 14:00 61 29 97 Vapotherm 25.00 55.00 11/13/20 13:00 62 14 111/71 (84) 98 Vapotherm 25.00 55.00 11/13/20 13:00 50 I & O 11/14/20 07:00 Intake Total 1530 ml Output Total 600 ml Balance 930 ml Height & Weight Height: '" Weight: lbs. oz. kg; 40.35 BMI Method: General Appearance: No Apparent Distress, WD/WN, Obese, Other (on vapotherm 25 + 50%) HEENT: PERRL/EOMI, Pharynx Normal, Moist Mucous Membranes Neck: Normal Inspection, Non Tender, Supple Respiratory: Lungs Clear; No Crackles; Decreased Breath Sounds; No Stridor, No Wheezing; Other (sounds improved compared to yesterday. on Vapotherm.) Cardiovascular: Regular Rate, Rhythm, No Edema, No Gallop, No Murmur Peripheral Pulses: 1+ Dorsalis Pedis (R), 1+ Left Dors-Pedis (L) Gastrointestinal: normal bowel sounds, non tender, soft Extremity: Normal Capillary Refill, Normal Inspection, Non Tender, No Calf Tenderness, No Pedal Edema Neurologic/Psychiatric: Alert, Oriented x3, No Motor/Sensory Deficits, Normal Mood/Affect Skin: Normal Color, Warm/Dry Results Lab Laboratory Tests 11/13/20 06:00 11/14/20 05:45 Assessment/Plan Assessment/Plan Covid-19 ARDS -on vapotherm this morning, was on bipap overnight. -respiratory status improving. -continue breathing treatments. Encouraged IS -receiving Decadron 6mg since 11/07; consider tapering soon hypotension, mild -continue to monitor labs reassuring today, no acute abnormalities. DVT prophylaxis -lovenox IV access -right upper arm peripheral IV LES LOWE MED STUDENT Nov 14, 2020 12:34
[2020-11-14] MEDS: ENOXAPARIN 40 MG/0.4 ML (LOVENOX) SYR SC SCH (18:14)
--- NOTE | 2020-11-14 20:58 | Progress Note ---
Subjective Subjective/Events-last exam States that he is breathing better. Tolerating PO diet. Changing over to high flow NC this AM. Review of Systems Pulmonary: No Dyspnea; Cough Cardiovascular: No: Chest Pain, Palpitations, Edema Gastrointestinal: No: Nausea, Vomiting, Abdominal Pain, Diarrhea, Constipation Neurological: Weakness, Incoordination Focused Exam Time of Focused Exam: 07:00 Objective Exam Last Set of Vital Signs Vital Signs Date Time Temp Pulse Resp B/P (MAP) Pulse Ox O2 Delivery O2 Flow Rate FiO2 11/14/20 19:58 36.8 68 18 134/77 (96) 96 High Flow N/C 3.00 11/14/20 08:47 45 Capillary Refill : I&O Intake and Output 11/14/20 00:00 Intake Total 1640 ml Output Total 600 ml Balance 1040 ml Intake Oral 1640 ml Output Urine Total 600 ml # Voids 2 # Bowel Movements 1 General: Alert, Oriented X3, Cooperative, Mild Distress Lungs: Clear to Auscultation, Normal Air Movement Heart: Regular Rate, No Murmurs Abdomen: Normal Bowel Sounds, Soft, No Tenderness, No Masses Extremities: No Edema, No Tenderness/Swelling Neuro: Normal Speech, Cranial Nerves 3-12 NL Results/Procedures Lab Laboratory Tests 11/14/20 05:45: White Blood Count 7.6, Red Blood Count 5.13, Hemoglobin 14.6, Hematocrit 43, Mean Corpuscular Volume 85, Mean Corpuscular Hemoglobin 29, Mean Corpuscular Hemoglobin Concent 34, Red Cell Distribution Width 11.9, Platelet Count 354, Mean Platelet Volume 9.6, Immature Granulocyte % (Auto) 2, Neutrophils (%) (Au to) 55, Lymphocytes (%) (Auto) 29, Monocytes (%) (Auto) 10, Eosinophils (%) (Auto) 3, Basophils (%) (Auto) 0, Neutrophils # (Auto) 4.2, Lymphocytes # (Auto) 2.2, Monocytes # (Auto) 0.8, Eosinophils # (Auto) 0.2, Basophils # (Auto) 0.0, Immature Granulocyte # (Auto) 0.2H, Sodium Level 141, Potassium Level 4.2, Chloride Level 106, Carbon Dioxide Level 24, Anion Gap 11, Blood Urea Nitrogen 21H, Creatinine 0.79, Estimat Glomerular Filtration Rate 118, BUN/Creatinine Rat io 27, Glucose Level 95, Calcium Level 9.1, Phosphorus Level 4.3, Magnesium Level 2.3 11/14/20 10:37: Glucometer 98 11/14/20 15:36: Glucometer 138H 11/14/20 20:20: Glucometer 94 Assessment/Plan Assessment/Plan (1) Acute and chronic respiratory failure with hypoxia Status: Acute Assessment & Plan: 11/12: Vapotherm dependent, FiO2 80%, discussed the importance of IS and proning, will d/c tyler at patients request so he can prone, S/p Actrema, Dexamethasone, Tele ICU helping with ICU management 11/13: Will continue to titrate as tolerated, plan on transfer to Med/Surg in AM 11/14: Transitioned to high flow and transferred to Med/Surg this AM. (2) Pneumonia due to COVID-19 virus Status: Acute (3) BMI 39.0-39.9,adult Status: Chronic (4) DVT prophylaxis Status: Acute Assessment & Plan: - TATIANA Ghosh MD Nov 14, 2020 20:58
[2020-11-14] MEDS: MELATONIN 3 MG TABLET PO SCH (21:36)
[2020-11-15] VITALS: BP 103/53
[2020-11-15] MEDS: RT-ALBUTEROL HFA 8.5 GM INHALER IH SCH ×3 (02:13→11:03)
[2020-11-15 04:00] VITALS: BP 111/62
[2020-11-15] MEDS: inSUlin ASPART (NovoLOG) 1 UNIT/0.01 ML (CHARGE PER UNIT) SC SCH ×2 (05:54→11:08)
[2020-11-15 05:55] LABS: BASOPHILS % (AUTO) 0 % (0-10); EOSINOPHILS # (AUTO) 0.1 10^3/uL (0.0-0.3); EOSINOPHILS % (AUTO) 2 % (0-10); HEMATOCRIT 44 % (40-54); HEMOGLOBIN 14.6 g/dL (13.3-17.7); LYMPHOCYTES # (AUTO) 3.2 10^3/uL (1.0-4.0); LYMPHOCYTES % (AUTO) 41 % (12-44); MEAN CORPUSCULAR HEMOGLOBIN 28 pg (25-34); MEAN CORPUSCULAR HGB CONC 33 g/dL (32-36); MEAN CORPUSCULAR VOLUME 84 fL (80-99); MEAN PLATELET VOLUME 9.8 fL (9.0-12.2); MONOCYTES # (AUTO) 0.8 10^3/uL (0.0-1.0); MONOCYTES % (AUTO) 10 % (0-12); NEUTROPHILS # (AUTO) 3.5 10^3/uL (1.8-7.8); NEUTROPHILS % (AUTO) 45 % (42-75); PLATELET COUNT 387 10^3/uL (130-400); WHITE BLOOD COUNT 7.8 10^3/uL (4.3-11.0)
[2020-11-15 06:07] LABS: POTASSIUM 3.7 MMOL/L (3.6-5.0)
[2020-11-15 06:12] LABS: CREATININE SERUM 0.76 MG/DL (0.60-1.30); PHOSPHORUS 4.9 MG/DL (2.3-4.7)
[2020-11-15] MEDS: POTASSIUM CL 10MEQ/50ML IVPB 50 ML IV SCH (06:13)
[2020-11-15] MEDS: MAGNESIUM 1 GM/100 ML IVPB 100 ML IV SCH (06:13)
[2020-11-15 06:14] LABS: MAGNESIUM 2.2 MG/DL (1.6-2.4)
[2020-11-15] MEDS: KCL 20 MEQ TAB (K-DUR) PO SCH (06:14)
[2020-11-15 08:00] VITALS: BP 119/75
[2020-11-15] MEDS: RT--FLUTICASONE/SALMETEROL 113-14 (AIRDUO RespiCLICK) IH SCH (08:00)
[2020-11-15] MEDS: polyethylene glycoL POWDER 17 GM (MIRALAX) PACK PO SCH (08:34)
[2020-11-15] MEDS: SENNA W/DOCUSATE (SENOKOT S) TABLET PO SCH (08:34)
[2020-11-15] MEDS: FAMOTIDINE 20 MG (PEPCID) TABLET PO SCH (08:34)
[2020-11-15] MEDS: guaiFENesin (MUCINEX) 600 MG TAB PO SCH (08:34)
[2020-11-15 12:00] VITALS: BP 112/70
[2020-11-15 13:04] VITALS: BP 112/70
--- NOTE | 2020-11-15 13:13 | Discharge Summary ---
Diagnosis/Chief Complaint Date of Admission Nov 07, 2020 at 16:21 Date of Discharge Discharge Diagnosis Problems/Diagnosis: (1) Acute and chronic respiratory failure with hypoxia Assessment & Plan: 11/12: Vapotherm dependent, FiO2 80%, discussed the importance of IS and proning, will d/c tyler at patients request so he can prone, S/p Actrema, Dexamethasone, Tele ICU helping with ICU management 11/13: Will continue to titrate as tolerated, plan on transfer to Med/Surg in AM 11/14: Transitioned to high flow and transferred to Med/Surg this AM. Status: Acute (2) Pneumonia due to COVID-19 virus Status: Acute (3) BMI 39.0-39.9,adult Status: Chronic (4) DVT prophylaxis Assessment & Plan: - Lovenox Status: Acute Discharge Summary-Simple/Stand Consultations Discharge Physical Examination Allergies: Coded Allergies: No Known Drug Allergies (Unverified , 11/04/20) Vitals & I&Os Vital Sign - Last 12Hours Date Time Temp Pulse Resp B/P (MAP) Pulse Ox O2 Delivery O2 Flow Rate FiO2 11/15/20 13:04 36.3 81 18 112/70 (84) 91 Room Air 11/15/20 08:00 1.00 11/14/20 08:47 45 Intake and Output 11/15/20 00:00 Intake Total 1200 ml Balance 1200 ml Hospital Course See final discharge diagnosis. Discharge Instructions to patient/family Please see electronic discharge instructions given to patient. Discharge Medications Reviewed and agree with Discharge Medication list on patient's Discharge Instruction sheet TATIANA GUZMÁN MD Nov 15, 2020 13:13
--- NOTE | 2020-11-15 13:23 | Discharge Summary ---
Discharge [facility] Reconcile Patient Problems Problems Reviewed?: Yes Discharge Medications New, Converted or Re-Newed RX: Other ( No new meds) Continued Medications: Acetaminophen (Tylenol Extra Strength) 500 Mg Tablet 1000 MG PO Q8H PRN for PAIN-MILD (1-4), TAB Acetaminophen with Codeine (Acetaminophen-Cod #3 Tablet) 1 Each Tablet 1 EA PO Q8H PRN for PAIN-MODERATE (5-7), TAB Budesonide (Budesonide) 0.5 Mg/2 Ml Ampul.neb 0.5 MG NEB BID PRN for WHEEZING, EA USE AFTER ALBUTEROL TREATMENT Dexamethasone (Dexamethasone) 4 Mg Tablet MG PO DAILY, TAB FILLED 11-05-2020 #8/10 DAY SUPPLY 1 TAB DAILY X 5 DAYS THEN TAB DAILY X 5 DAYS Fenofibrate Nanocrystallized (Fenofibrate) 145 Mg Tablet 145 MG PO DAILY, TAB FILLED 11-05-2020 #10/10 DAY SUPPLY Fluticasone Propionate (Fluticasone Propionate) 16 Gm [place].susp 2 SPRAYS NSEACH DAILY, EA Ipratropium/Albuterol Sulfate (Iprat-Albut 0.5-3(2.5) mg/3 ml) 3 Ml Ampul.neb 3 ML IH TID PRN for SHORTNESS OF BREATH, EACH Loratadine (Loratadine) 10 Mg Tablet 10 MG PO DAILY, TAB Ondansetron (Ondansetron Odt) 4 Mg Tab.rapdis 4 MG PO Q6H PRN for NAUSEA/VOMITING-1ST LINE, TAB Discontinued Medications: Amoxicillin/Potassium Clav (Amox Tr-K Clv 875-125 mg Tab) 1 Each Tablet 1 EA PO BID, TAB FILLED 10-31-2020 #20/10 DAY SUPPLY Ascorbic Acid (Vitamin C) 500 Mg Tablet 500 MG PO DAILY, TAB Azithromycin (Azithromycin) 250 Mg Tablet 250 MG PO DAILY, TAB FILLED 11-05-2020 #6/5 DAY SUPPLY Cholecalciferol (Vitamin D3) (Vitamin D3) 50 Mcg Tablet 50 MCG PO DAILY, TAB Ivermectin (Ivermectin) 3 Mg Tablet 6 MG PO BID, TAB TAKES 2 (3MG) TABS FILLED 11-05-2020 #20/5 DAY SUPPLY Zinc (Zinc) 50 Mg Tablet 50 MG PO DAILY, TAB Patient Instructions Goal/Follow Up Appt: [facility] recommended Dr Charles Patient Instructions: Will need workup for MARSHALL after recovered Continue to use oxygen with ambulation Activity & Diet Discharge Diet: No Restrictions Activity as Tolerated: Yes TATIANA GUZMÁN MD Nov 15, 2020 13:20
== END 2020-11-15 15:00 | disposition home or self-care (01) | DRG 177 ==
LOC: 4TH 16:21 → ICU 11-08 15:28 → 4TH 11-14 16:07
PROVIDERS: ADMIT Internal Medicine; ATTEND Family Medicine
PROC: 5A0945A Assistance with Respiratory Ventilation, 24-96 Consecutive Hours, High Flow/Velocity Cannula (ICD-10-PCS; principal; 2020-11-07)
DX: U07.1 COVID-19 (principal); J12.82 Pneumonia due to coronavirus disease 2019; J80 Acute respiratory distress syndrome; Z68.41 Body mass index [BMI] 40.0-44.9, adult; E87.1 Hypo-osmolality and hyponatremia; R73.9 Hyperglycemia, unspecified; I10 Essential (primary) hypertension; G47.33 Obstructive sleep apnea (adult) (pediatric); E83.41 Hypermagnesemia; I95.9 Hypotension, unspecified; F17.220 Nicotine dependence, chewing tobacco, uncomplicated; T38.0X5A Adverse effect of glucocorticoids and synthetic analogues, initial encounter; Z79.899 Other long term (current) drug therapy; Z73.0 Burn-out
CPT/HCPCS: 36415; 71045; 80048; 80053; 82805; 82947; 83036; 83735; 84100; 84145; 85025; 85379; 86141; 94640; 94660; 94664; 94760; 94761

== ENCOUNTER 2021-11-08 21:18 | Observation (INO) | payer OTHER ==
[~2021-11-08] VITALS: Ht 180.3 cm; Wt 137.3 kg
[~2021-11-08 21:18] MED LIST changes: +ACET-11 PO; +ACET-2267 PO; +AMOX1TAB12 PO; +ASCO500T17 PO; +AZIT250T12 PO; +BUDE0.5A IH; +BUDE0.5A NEB; +CHOL200059 PO; +DEXA4TAB PO; +FENO145T26 PO; +FLUT16SP22 NSEACH; +IPRA3AMP31 IH; +IVER3TAB2 PO; +LORA10TA7 PO; +LORA10TA76 PO; +ZINC50TA58 PO
[2021-11-08] MEDS ORDERED: DICYCLOMINE 10 MG/ML (BENTYL) 2 ML AMP IM STA (21:34)
[2021-11-08] MEDS ORDERED: NS IV 1000 ML 1,000 ML IV STA (21:34)
[2021-11-08] MEDS ORDERED: KETOROLAC 30 MG/ML VIAL IVP STA (21:34)
[2021-11-08] MEDS ORDERED: PANTOPRAZOLE 40 MG (PROTONIX) VIAL IV STA (21:34)
[2021-11-08] MEDS ORDERED: ONDANSETRON 4 MG/2 ML (SDV) Z0FRAN IVP STA (21:34)
[2021-11-08] MEDS ORDERED: IOHEXOL 350 MG/ML 100 ML (OMNIPAQUE 350) VIAL IV ONE (21:45)
[2021-11-08] MEDS ORDERED: NS 100 ML (IVPB) BAG IV ONE (21:45)
[2021-11-08] MEDS ORDERED: HOLD METFORMIN - RECEIVED CONTRAST 20 ML VIAL IV SCH (21:45)
--- NOTE | 2021-11-08 21:51 | ED GI ---
General Stated Complaint: ABD PAIN Source of Information: Patient, Spouse History of Present Illness Date Seen by Provider: Nov 08, 2021 Time Seen by Provider: 21:25 Initial Comments 30-year-old male presenting with complaints of 3 to 4 days of nausea, diffuse abdominal pain, multiple episodes of diarrhea and worsening pain to the left side of his abdomen in the last few hours. He states that this started while they were on vacation in [place]. He just arrived back in the [place] at 1 AM. He has been taking Pepto-Bismol and Imodium. His gave him a dose of Zofran yesterday that she had. He had cold sweats yesterday and they thought he had a fever but never took his temperature. He has a history of migraine headaches and high blood pressure. He denies having prior abdominal symptoms like this. He has seen some blood in his stool intermittently. Timing/Duration: 3-4 Days Severity/Quality: Severe, Cramping Location: Generalized Abdomen (Generalized over the last 3 to 4 days but worse on the left side in the last couple of hours) Radiation: No Radiation Activities at Onset: None Modifying Factors: Worsens With Eating, Worsens With Movement, Worsens With Palpation Associated Symptoms: No Back Pain, No Chest Pain; Diaphoresis (Reports having cold sweats yesterday); No Fever/Chills, No Fatigue, No Headache, No Heartburn; Nausea/Vomiting; No Rash, No Shortness of Air, No Swelling/Mass in Abdomen, No Syncope, No Weakness Allergies and Home Medications Allergies Coded Allergies: No Known Drug Allergies (Unverified , 11/04/20) Patient Home Medication List Home Medication List Reviewed: Yes Acetaminophen (Tylenol Extra Strength) 500 Mg Tablet, 1,000 MG PO Q8H PRN for PAIN-MILD (1-4), (Reported) Entered as Reported by: EL VELARDE on 11/08/20 1007 Acetaminophen with Codeine (Acetaminophen-Cod #3 Tablet) 1 Each Tablet, 1 EA PO Q8H PRN for PAIN-MODERATE (5-7), (Reported) Entered as Reported by: EL VELARDE on 11/08/20 1007 Budesonide (Budesonide) 0.5 Mg/2 Ml Ampul.neb, 0.5 MG NEB BID PRN for WHEEZING, (Reported) Entered as Reported by: EL VELARDE on 11/08/201006 Dexamethasone (Dexamethasone) 4 Mg Tablet, MG PO DAILY, (Reported) Entered as Reported by: EL VELARDE on 11/08/201006 Fenofibrate Nanocrystallized (Fenofibrate) 145 Mg Tablet, 145 MG PO DAILY, (Reported) Entered as Reported by: EL VELARDE on 11/08/201006 Fluticasone Propionate (Fluticasone Propionate) 16 Gm [place].susp, 2 SPRAYS NSEACH DAILY, (Reported) Entered as Reported by: EL VELARDE on 11/08/201006 Ipratropium/Albuterol Sulfate (Iprat-Albut 0.5-3(2.5) mg/3 ml) 3 Ml Ampul.neb, 3 ML IH TID PRN for SHORTNESS OF BREATH, (Reported) Entered as Reported by: EL VELARDE on 11/08/201006 Loratadine (Loratadine) 10 Mg Tablet, 10 MG PO DAILY, (Reported) Entered as Reported by: EL VELARDE on 11/08/201006 Ondansetron (Ondansetron Odt) 4 Mg Tab.rapdis, 4 MG PO Q6H PRN for NAUSEA/VOMITING-1ST LINE, (Reported) Entered as Reported by: EL VELARDE on 11/08/201006 Review of Systems Review of Systems Constitutional: see HPI EENTM: No Symptoms Reported Respiratory: No Symptoms Reported Cardiovascular: No Symptoms Reported Gastrointestinal: See HPI Genitourinary: Denies Hematuria, Denies Pain Musculoskeletal: no symptoms reported Skin: No rash Psychiatric/Neurological: No Symptoms Reported Endocrine: No Symptoms Reported Hematologic/Lymphatic: No Symptoms Reported Past Vcobvwr-Honfyc-Kfepvg Hx Past Medical History Surgery/Hospitalization HX: Hypertension, migraines Surgeries: No Respiratory: No Cardiac: No High Cholesterol Neurological: No Genitourinary: No Gastrointestinal: No Musculoskeletal: No Endocrine: No HEENT: No Cancer: No Psychosocial: No Physical Exam Vital Signs Vital Signs - First Documented 11/08/21 21:20 Temp 36.4 Pulse 84 Resp 16 B/P (MAP) 167/100 (122) Pulse Ox 98 O2 Delivery Room Air Capillary Refill : Height/Weight/BMI Height: '" Weight: lbs. oz. kg; 40.35 BMI Method: General Appearance: WD/WN, moderate distress HEENT: PERRL/EOMI, pharynx normal Neck: non-tender, full range of motion, supple, normal inspection Respiratory: chest non-tender, lungs clear, normal breath sounds, no respiratory distress, no accessory muscle use Cardiovascular: normal peripheral pulses, regular rate, rhythm Gastrointestinal: soft, no pulsatile mass, abnormal bowel sounds (Hyperactive); No distended; guarding, rebound, tenderness (Diffuse tenderness but worse on the left side) Rectal: deferred Extremities: normal range of motion, non-tender, normal capillary refill Neurologic/Psychiatric: alert, oriented x 3 Skin: normal color, warm/dry; No rash Focused Exam Lactate Level 11/08/21 22:26: Lactic Acid Level 1.28 Lactic Acid Level Laboratory Tests Test 11/08/21 22:26 Lactic Acid Level 1.28 MMOL/L (0.50-2.00) Progress/Results/Core Measures Results/Orders Lab Results Laboratory Tests Test 11/08/21 21:51 11/08/21 22:26 Range/Units White Blood Count 8.5 4.3-11.0 10^3/uL Red Blood Count 5.41 4.30-5.52 10^6/uL Hemoglobin 15.3 13.3-17.7 g/dL Hematocrit 43 40-54 % Mean Corpuscular Volume 79 L 80-99 fL Mean Corpuscular Hemoglobin 28 25-34 pg Mean Corpuscular Hemoglobin Concent 36 32-36 g/dL Red Cell Distribution Width 12.7 10.0-14.5 % Platelet Count 266 130-400 10^3/uL Mean Platelet Volume 9.8 9.0-12.2 fL Immature Granulocyte % (Auto) 0 % Neutrophils (%) (Auto) 49 42-75 % Lymphocytes (%) (Auto) 36 12-44 % Monocytes (%) (Auto) 14 H 0-12 % Eosinophils (%) (Auto) 1 0-10 % Basophils (%) (Auto) 1 0-10 % Neutrophils # (Auto) 4.2 1.8-7.8 10^3/uL Lymphocytes # (Auto) 3.1 1.0-4.0 10^3/uL Monocytes # (Auto) 1.1 H 0.0-1.0 10^3/uL Eosinophils # (Auto) 0.1 0.0-0.3 10^3/uL Basophils # (Auto) 0.0 0.0-0.1 10^3/uL Immature Granulocyte # (Auto) 0.0 0.0-0.1 10^3/uL Prothrombin Time 12.9 12.2-14.7 SEC INR Comment 0.9 0.8-1.4 Activated Partial Thromboplast Time 31 24-35 SEC Sodium Level 138 135-145 MMOL/L Potassium Level 3.5 L 3.6-5.0 MMOL/L Chloride Level 100 98-107 MMOL/L Carbon Dioxide Level 23 21-32 MMOL/L Anion Gap 15 H 5-14 MMOL/L Blood Urea Nitrogen 12 7-18 MG/DL Creatinine 1.09 0.60-1.30 MG/DL Estimat Glomerular Filtration Rate 95 BUN/Creatinine Ratio 11 Glucose Level 97 70-105 MG/DL Calcium Level 9.6 8.5-10.1 MG/DL Corrected Calcium 9.3 8.5-10.1 MG/DL Total Bilirubin 0.5 0.1-1.0 MG/DL Aspartate Amino Transf (AST/SGOT) 42 H 5-34 U/L Alanine Aminotransferase (ALT/SGPT) 64 H 0-55 U/L Alkaline Phosphatase 119 40-136 U/L Total Protein 8.1 6.4-8.2 GM/DL Albumin 4.4 3.2-4.5 GM/DL Lipase 113 H 8-78 U/L Lactic Acid Level 1.28 0.50-2.00 MMOL/L My Orders Orders - GERSON LOBATO MD Comprehensive Metabolic Panel (11/08/21 21:31) Lipase (11/08/21 21:31) Ua Culture If Indicated (11/08/21 21:31) Ed Iv/Invasive Line Start (11/08/21 21:31) Cbc With Automated Diff (11/08/21 21:31) Ct Abdomen/Pelvis W (11/08/21 21:31) Lactic Acid Analyzer (11/08/21 21:31) Protime With Inr (11/08/21 21:31) Partial Thromboplastin Time (11/08/21 21:31) Covid 19 Inhouse Test (11/08/21 21:31) Ns Iv 1000 Ml (Sodium Chloride 0.9%) (11/08/21 21:34) Ondansetron Injection (Zofran Injectio (11/08/21 21:34) Dicyclomine Injection (Bentyl Injection) (11/08/21 21:34) Ketorolac Injection (Toradol Injection) (11/08/21 21:34) Pantoprazole Injection (Protonix Injecti (11/08/21 21:34) Iohexol Injection (Omnipaque 350 Mg/Ml 1 (11/08/21 21:45) Received Contrast (Hold Metformin- Contr (11/08/21 21:45) Ns (Ivpb) (Sodium Chloride 0.9% Ivpb Bag (11/08/21 21:45) Stool Culture (11/08/21 21:35) Fecal Wbc (11/08/21 21:35) C Difficile Ag + Toxin A/B. (11/08/21 21:35) Parasite Scrn Stool Giard Cryp (11/08/21 21:35) Parasite Complete Exam Stool (11/08/21 21:35) Isolation Central Supply Req (11/08/21 21:35) Azithromycin Tablet (Zithromax Tablet) (11/08/21 22:47) Medications Given in ED Current Medications Medications Dose Ordered Sig/Susana Route Start Time Stop Time Status Last Admin Dose Admin Iohexol 100 ml ONCE ONCE IV 11/08/21 21:45 11/08/21 21:46 DC 11/08/21 21:59 100 ML Sodium Chloride 100 ml ONCE ONCE IV 11/08/21 21:45 11/08/21 21:46 DC 11/08/21 21:59 100 ML Vital Signs/I&O 11/08/21 11/08/21 21:20 23:11 Temp 36.4 Pulse 84 91 Resp 16 16 B/P (MAP) 167/100 (122) 143/76 Pulse Ox 98 98 O2 Delivery Room Air Room Air Progress Progress Note #1: Progress Note Order basic labs as well as urinalysis and if he has diarrhea here we will send it for stool studies. Give normal saline 1 L IV fluid bolus for hydration, Zofran 4 mg IV for nausea, Bentyl 20 mg IM for abdominal cramping and spasm, Toradol 30 mg IV for pain, Protonix 40 mg IV for gastritis and epigastric pain. CT scan of the abdomen and pelvis with IV contrast to help evaluate for possible colitis, diverticulitis, abdominal mass, cholecystitis, pyelonephritis. COVID swab to help check for COVID as a potential source of his symptoms. Progress Note #2: Time: 22:27 Progress Note CBC stable without elevation of the white blood cell count. He had mild elevation of monocytes to 14%. His chemistry panel did not show any acute significant abnormality. He did have mild elevation of his AST, ALT, lipase. These were all just slightly above normal range. His coags were normal. Awaiting CT scan. Progress Note #3: Time: 22:[address] scan shows diffuse colitis without abscess or perforation. His pain was improved with medication but still had intermittent waves of more severe pain. With his recent travel to [place] where he had his symptoms start I reviewed the [facility] travel website as well as up-to-date reference. Based on reviewing information on the sites will treat with azithromycin for possible traveler's diarrhea. Stool cultures are pending. Discussed with Dr. Quiles for the hospitalist service and she accepted patient for observation admission for continued fluids, initiate antibiotics, continued pain and nausea control. Diagnostic Imaging Diagonstic Imaging: CT Plain Films/CT/US/NM/MRI: abdomen, pelvis Comments [facility] [place], [place] NAME: CAREY TADEO [facility] REC#: [id number] PT STATUS: REG ER : 1990 PHYSICIAN: GERSON LOBATO MD ADMIT DATE: 11/08/21/ER FS Signed Date of Exam:11/08/21 CT ABDOMEN/PELVIS W EXAMINATION: CT abdomen and pelvis with intravenous contrast. TECHNIQUE: Multiple contiguous axial images were obtained through the abdomen and pelvis after the uneventful administration of intravenous contrast. All CT scans use one or more of the following dose optimizing techniques: automated exposure control, MA and/or KvP adjustment based on patient size and exam type or iterative reconstruction. HISTORY: Abdominal pain. Nausea. Diarrhea. COMPARISON: None available. FINDINGS: The heart is unremarkable. The included lung bases are clear. The liver, spleen, pancreas, adrenal glands and kidneys have a normal appearance. There is no pathologically enlarged mesenteric or retroperitoneal adenopathy. The bowel loops are nondilated. The appendix is visualized in the right lower quadrant and has a normal appearance. The colon is decompressed with mild colon wall thickening. There is no free fluid or free air. No acute osseous abnormalities. Ureters and bladder are grossly normal. There is no free air, loculated collection or adenopathy in the pelvis. IMPRESSION: Findings suggestive of diffuse colitis. No bowel obstruction. No free fluid or free air. Normal appendix. Dictated by: Dictated on workstation # [id number] Dict: 11/08/212223 Trans: 11/08/212307 [facility] [id number] Interpreted by: BOLA LANIER DO Electronically signed by: BOLA LANIER DO 11/08/212307 Reviewed: Reviewed by Me Departure Communication (Admissions) Time/Spoke to Admitting Phy: 22:42 d/w Dr. Quiles and will admit as observation pt for bloody diarrhea with abdominal pain and traveler's diarrhea. Impression Primary Impression: Colitis Additional Impressions: Diffuse abdominal pain Nausea vomiting and diarrhea Bloody diarrhea Traveler's diarrhea Disposition: 30 STILL A PATIENT Condition: Stable Admissions Decision to Admit Reason: Admit from ER (General) Decision to Admit/Date: Nov 08, 2021 Time/Decision to Admit Time: 22:42 Departure-Patient Inst. Referrals: SUMI BEAR DO (PCP/Family) Primary Care Physician GERSON LOBATO MD Nov 08, 2021 21:51
[2021-11-08 21:56] LABS: BASOPHILS % (AUTO) 1 % (0-10); EOSINOPHILS # (AUTO) 0.1 10^3/uL (0.0-0.3); EOSINOPHILS % (AUTO) 1 % (0-10); HEMATOCRIT 43 % (40-54); HEMOGLOBIN 15.3 g/dL (13.3-17.7); LYMPHOCYTES # (AUTO) 3.1 10^3/uL (1.0-4.0); LYMPHOCYTES % (AUTO) 36 % (12-44); MEAN CORPUSCULAR HEMOGLOBIN 28 pg (25-34); MEAN CORPUSCULAR HGB CONC 36 g/dL (32-36); MEAN CORPUSCULAR VOLUME 79 fL (80-99); MEAN PLATELET VOLUME 9.8 fL (9.0-12.2); MONOCYTES # (AUTO) 1.1 10^3/uL (0.0-1.0); MONOCYTES % (AUTO) 14 % (0-12); NEUTROPHILS # (AUTO) 4.2 10^3/uL (1.8-7.8); NEUTROPHILS % (AUTO) 49 % (42-75); PLATELET COUNT 266 10^3/uL (130-400); WHITE BLOOD COUNT 8.5 10^3/uL (4.3-11.0)
[2021-11-08 22:05] LABS: INR 0.9 (0.8-1.4); PROTHROMBIN TIME PATIENT 12.9 SEC (12.2-14.7)
[2021-11-08 22:17] LABS: CREATININE SERUM 1.09 MG/DL (0.60-1.30); POTASSIUM 3.5 MMOL/L (3.6-5.0)
[2021-11-08 22:18] LABS: ALBUMIN 4.4 GM/DL (3.2-4.5); BILIRUBIN,TOTAL 0.5 MG/DL (0.1-1.0); CALCIUM 9.6 MG/DL (8.5-10.1); TOTAL PROTEIN 8.1 GM/DL (6.4-8.2)
--- NOTE | 2021-11-08 22:28 | Diagnostic Imaging Report ---
EXAMINATION: CT abdomen and pelvis with intravenous contrast. TECHNIQUE: Multiple contiguous axial images were obtained through the abdomen and pelvis after the uneventful administration of intravenous contrast. All CT scans use one or more of the following dose optimizing techniques: automated exposure control, MA and/or KvP adjustment based on patient size and exam type or iterative reconstruction. HISTORY: Abdominal pain. Nausea. Diarrhea. COMPARISON: None available. FINDINGS: The heart is unremarkable. The included lung bases are clear. The liver, spleen, pancreas, adrenal glands and kidneys have a normal appearance. There is no pathologically enlarged mesenteric or retroperitoneal adenopathy. The bowel loops are nondilated. The appendix is visualized in the right lower quadrant and has a normal appearance. The colon is decompressed with mild colon wall thickening. There is no free fluid or free air. No acute osseous abnormalities. Ureters and bladder are grossly normal. There is no free air, loculated collection or adenopathy in the pelvis. IMPRESSION: Findings suggestive of diffuse colitis. No bowel obstruction. No free fluid or free air. Normal appendix. Dictated by: Dictated on workstation # [id number]
[2021-11-08] MEDS ORDERED: AZITHROMYCIN 250 MG TAB (ZITHROMAX) PO STA (22:47)
[2021-11-09 00:10] VITALS: BP 136/83
[2021-11-09] MEDS ORDERED: NS IV 1000 ML 1,000 ML ONE (00:21)
[2021-11-09] MEDS: NS IV 1000 ML 1,000 ML IV SCH ×2 (00:39→09:08)
[2021-11-09] MEDS ORDERED: KETOROLAC 30 MG/ML VIAL IV PRN (00:45)
[2021-11-09] MEDS ORDERED: fentaNYL INJ 100 MCG/2 ML AMP IV PRN (00:45)
[2021-11-09] MEDS ORDERED: ONDANSETRON 4 MG/2 ML (SDV) Z0FRAN IV PRN (00:45)
[2021-11-09] MEDS ORDERED: SUMA50TA2 PO (03:33)
[2021-11-09] MEDS ORDERED: PROP80CA4 PO (03:33)
[2021-11-09 04:49] VITALS: BP 120/81
[2021-11-09] MEDS: DICYCLOMINE 10 MG (BENTYL) CAP PO SCH ×2 (05:12→12:44)
[2021-11-09 05:32] LABS: BASOPHILS % (AUTO) 1 % (0-10); EOSINOPHILS # (AUTO) 0.1 10^3/uL (0.0-0.3); EOSINOPHILS % (AUTO) 1 % (0-10); HEMATOCRIT 40 % (40-54); HEMOGLOBIN 13.9 g/dL (13.3-17.7); LYMPHOCYTES # (AUTO) 1.4 10^3/uL (1.0-4.0); LYMPHOCYTES % (AUTO) 23 % (12-44); MEAN CORPUSCULAR HEMOGLOBIN 29 pg (25-34); MEAN CORPUSCULAR HGB CONC 35 g/dL (32-36); MEAN CORPUSCULAR VOLUME 81 fL (80-99); MEAN PLATELET VOLUME 9.6 fL (9.0-12.2); MONOCYTES # (AUTO) 0.8 10^3/uL (0.0-1.0); MONOCYTES % (AUTO) 13 % (0-12); NEUTROPHILS # (AUTO) 3.7 10^3/uL (1.8-7.8); NEUTROPHILS % (AUTO) 62 % (42-75); PLATELET COUNT 214 10^3/uL (130-400)
[2021-11-09 05:48] LABS: CALCIUM 8.7 MG/DL (8.5-10.1); CREATININE SERUM 1.05 MG/DL (0.60-1.30); POTASSIUM 3.2 MMOL/L (3.6-5.0)
[2021-11-09 07:27] VITALS: BP 138/81
[2021-11-09] MEDS ORDERED: PANTOPRAZOLE 40 MG (PROTONIX) VIAL IV SCH (09:00)
[2021-11-09] MEDS ORDERED: ONDA4TAB11 PO (09:36)
[2021-11-09] MEDS ORDERED: DICY20TA PO (09:36)
[2021-11-09] MEDS ORDERED: AZIT500T9 PO (09:36)
--- NOTE | 2021-11-09 09:37 | Short Stay Summary-Hospitalist ---
History of Present Illness HPI/Chief Complaint Patient is a 30-year-old male past medical history of hypertension who presented to the emergency department due to abdominal pain and diarrhea. He states he was in [place] for vacation when his symptoms started. They started roughly 3 days into the medication and has been going on for 3 to 4 days now. He had nausea and abdominal pain. He had innumerable episodes of diarrhea. He had been taking Pepto-Bismol and Imodium at home with minimal improvement. His gave him a Zofran which did help with the nausea. He had a subjective fever though did not have a thermometer on medication. He did notice a little bit of blood in his stool but this is since resolved. He reports feeling much better today and would like to try eating something. Source: patient Date Seen 11/09/21 Time Seen by a Provider: 09:15 Attending Physician Primo Plascencia DO PCP Admitting Physician: Tino Quiles MD Attending Physician: Tino Quiles MD Referring Physician Date of Admission Nov 09, 2021 at 00:05 Home Medications & Allergies Home Medications Reviewed patient Home Medication Reconciliation performed by pharmacy medication reconciliations satellite installation technician and/or nursing. Patients Allergies have been reviewed. Allergies Allergies Coded Allergies No Known Drug Allergies (Unverified11/04/20) Past Whdfsib-Eygczl-Koxrsw Hx Patient Social History Marrital Status: Employed/Student: employed Tobacco Use?: No Smoking Status: Never a Smoker Smokeless type used: Chew Smokeless Tobacco Frequency: Current Everyday User Use of E-Cig and/or Vaping dev: No Substance use?: No Alcohol Use?: No Pt feels they are or have been: No Immunizations Up To Date Tetanus Booster (TDap): Unknown Hepatitis A: No Hepatitis B: No Current Status Advance Directives: No Communicates: Verbally Primary Language: Mexican Preferred Spoken Language: Mexican Is interpretation needed?: No Implanted or Applied Medical D: None Past Medical History High Cholesterol Review of Systems Constitutional: chills, fever EENTM: no symptoms reported Respiratory: no symptoms reported Cardiovascular: no symptoms reported Gastrointestinal: see HPI, abdominal pain, diarrhea; No hematemesis; nausea Genitourinary: no symptoms reported Musculoskeletal: no symptoms reported Skin: no symptoms reported Psychiatric/Neurological: No Symptoms Reported Physical Exam Physical Exam Vital Signs Vital Signs - First Documented 11/08/21 21:20 Temp 36.4 Pulse 84 Resp 16 B/P (MAP) 167/100 (122) Pulse Ox 98 O2 Delivery Room Air Capillary Refill : Less Than 3 Seconds Height, Weight, BMI Height: '" Weight: lbs. oz. kg; 42.23 BMI Method: General Appearance: No Apparent Distress, WD/WN, Obese HEENT: PERRL/EOMI, Moist Mucous Membranes; No Scleral Icterus (L), No Scleral Icterus (R) Neck: Normal Inspection, Supple Respiratory: Lungs Clear, No Accessory Muscle Use, No Respiratory Distress Cardiovascular: Regular Rate, Rhythm, No JVD, No Murmur Gastrointestinal: Normal Bowel Sounds, Non Tender, Soft; No Distended, No Tenderness Extremity: Normal Capillary Refill, No Calf Tenderness, No Pedal Edema Neurologic/Psychiatric: Alert, Oriented x3, Normal Mood/Affect Skin: Normal Color, Warm/Dry Results Results/Procedures Labs Laboratory Tests 11/08/21 21:51 11/09/21 05:15 Patient resulted labs reviewed. Imaging: Reviewed Imaging Report Imaging [facility] [place] NAME: CAREY TADEO [facility] REC#: [id number] PT STATUS: REG ER : 1990 PHYSICIAN: GERSON LOBATO MD ADMIT DATE: 11/08/21/ER FS Signed Date of Exam:11/08/21 CT ABDOMEN/PELVIS W EXAMINATION: CT abdomen and pelvis with intravenous contrast. TECHNIQUE: Multiple contiguous axial images were obtained through the abdomen and pelvis after the uneventful administration of intravenous contrast. All CT scans use one or more of the following dose optimizing techniques: automated exposure control, MA and/or KvP adjustment based on patient size and exam type or iterative reconstruction. HISTORY: Abdominal pain. Nausea. Diarrhea. COMPARISON: None available. FINDINGS: The heart is unremarkable. The included lung bases are clear. The liver, spleen, pancreas, adrenal glands and kidneys have a normal appearance. There is no pathologically enlarged mesenteric or retroperitoneal adenopathy. The bowel loops are nondilated. The appendix is visualized in the right lower quadrant and has a normal appearance. The colon is decompressed with mild colon wall thickening. There is no free fluid or free air. No acute osseous abnormalities. Ureters and bladder are grossly normal. There is no free air, loculated collection or adenopathy in the pelvis. IMPRESSION: Findings suggestive of diffuse colitis. No bowel obstruction. No free fluid or free air. Normal appendix. Dictated by: Dictated on workstation # [id number] Dict: 11/08/212223 Trans: 11/08/212307 [facility] [id number] Interpreted by: BOLA LANIER DO Electronically signed by: BOLA LANIER DO 11/08/212307 Short Stay Diagnosis Discharge Diagnosis-Short Stay Admission Diagnosis Travelers' Diarrhea Final Discharge Diagnosis Colitis from Travelers' Diarrhea Conclusion Plan Colitis from Travelers' Diarrhea Continue azithromycin Continue supportive treatment Advance diet as tolerated Will DC home if tolerating diet and pain controlled HTN BP improved Continue home meds Diagnosis/Problems Diagnosis/Problems (1) Bloody diarrhea Status: Acute (2) Colitis Status: Acute (3) Traveler's diarrhea Status: Acute TINO QUILES MD Nov 09, 2021 09:37
--- NOTE | 2021-11-09 09:41 | Discharge Inst-Simple/Standard ---
Discharge Inst-Standard Discharge Medications New, Converted or Re-Newed RX: Transmitted to Pharmacy Patient Instructions/Follow Up Plan of Care/Instructions/FU: Please continue to take your medications as written. Please follow up with your primary care doctor to follow up this hospital stay. Activity as Tolerated: Yes Discharge Diet: No Restrictions (start bland and advance over the next couple of days) Return to The Hospital For: Chest pain, abdominal pain, diarrhea, bloody stools, vomiting, shortness of breath, fever, weakness, if you feel you are getting worse. TINO WALDRON MD Nov 09, 2021 09:41
[2021-11-09 11:30] VITALS: BP 142/81
[2021-11-09 14:50] VITALS: BP 142/81
[2021-11-09] MEDS ORDERED: AZITHROMYCIN 250 MG TAB (ZITHROMAX) PO SCH (21:00)
== END 2021-11-09 14:09 | disposition home or self-care (01) ==
LOC: EDUNIT# 21:18 → ER FS 21:19 → 4TH 21:20 → UNDOADMOB 22:42 → 4TH 11-09 00:05 → UNDOADMOB 11-09 00:05 → UNDODISOB 11-09 14:50
PROVIDERS: ADMIT Family Medicine; ATTEND Family Medicine
DX: K52.9 Noninfective gastroenteritis and colitis, unspecified (principal); F17.210 Nicotine dependence, cigarettes, uncomplicated; I10 Essential (primary) hypertension; Z79.899 Other long term (current) drug therapy
CPT/HCPCS: 74177; 80048; 80053; 83605; 83690; 85025; 85610; 85730; 87015; 87045; 87046; 87077; 87177; 87324; 87328; 87329; 87449; 87899; 96361; 96372; 96374; 96375 ×2; 96376; 99283; G0378; 36415; Q9967